=== PATIENT | male | born 2005 | race Caucasian/White ===

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

== ENCOUNTER 2023-06-10 17:55 | Outpatient (CLI) | payer BC, SELFPAY ==
--- NOTE | 2023-06-10 16:15 | DI.RAD_ITS ---
Exam(s) XR CHEST 2V PA LATERAL EXAM: XR CHEST 2V PA LATERAL CLINICAL HISTORY: R05.3 chronic cough with sternal chest discomfort J45.20 MILD ASTHMA TECHNIQUE: 2D digital imaging was performed of the chest. Two images were obtained. PA and lateral views were obtained. COMPARISON: No exams were available for comparison FINDINGS: MEDIASTINUM: Normal. HEART: Normal. PULMONARY VASCULATURE: Normal. LUNGS: Clear. Incidental note is made of an azygos lobe which is a normal variant. PLEURAL SPACE: No pleural effusion or pneumothorax. BONE:Within normal limits for the patient's age. OTHER FINDINGS:Normal. IMPRESSION: No acute pulmonary findings. DATA REPOSITORY: RADIATION DOSE DELIVERED:
--- OUTSIDE RECORDS SUMMARY | 2023-06-10 17:59 | XMS_ITS | Continuity of Care Document ---
Author Name Unknown Organization [facility] Address [address] [place] [address] Care Team Providers Care Medical Underwriter Name Role Phone Roseanne Richard Primary Care Physician Unavail able Encounter [facility] NBR [id number] Date(s): 09/14/22 - 09/14/22 [facility] [address], [place] [address] Discharge Disposition: Home or Self Care Attending Physician: Jean Claude Foster MD Referring Physician: Roseanne Richard Social History Social History Type Response Sex Male Patient Care team information Personnel Name: Roseanne Richard
== END 2023-06-10 18:15 ==
LOC: DI 17:57
PROVIDERS: PCP Student in an Organized Health Care Education/Training Program; Visit Provider Pediatrics
DX: J45.20 Mild intermittent asthma, uncomplicated (principal); R05.3 Chronic cough
CPT/HCPCS: 71046

== ENCOUNTER 2024-11-09 13:52 | Outpatient (CLI) | payer BC, SELFPAY ==
[2024-11-09 13:52] LABS: Abs Immature Grans 0.01 10^3/uL (0.0-0.06); Absolute Basophil Count 0.04 10^3/uL (0.0-0.2); Absolute Eosinophil Count 0.07 10^3/uL (0.0-0.7); Absolute Lymphocyte Count 2.22 10^3/uL (1.2-3.4); Absolute Monocyte Count 0.62 10^3/uL (0.1-0.8); Absolute Neutrophil Count 3.93 10^3/uL (1.2-6.7); Basophils % 0.6 %; HCT 43.9 % (40.0-50.0); HGB 15.3 g/dL (13.5-17.5); Immature Grans % 0.1 %; Lymphocytes % 32.2 %; MCH 30.8 pg (27.0-33.0); MCHC 34.9 % (32.0-36.0); MCV 89 fL (80-95); MPV 8.8 fL (8.0-11.0); Neutrophils % 57.1 %; Platelet Count 247 10^3/uL (130-400); RBC 4.96 10^6/uL (4.36-5.78); RDW 11.4 % (11.8-14.1); RDW-SD 36.7 fL; WBC 6.89 10^3/uL (4.4-10.8)
[2024-11-09 13:55] LABS: ESR 1 mm/hr (0-15)
--- OUTSIDE RECORDS SUMMARY | 2024-11-09 13:55 | XMS_ITS | Encounter Summary ---
[place] [address] Care Team Providers Care Ethylene Compressor Operator Name Role Phone Mallory Arce MD Primary Care Provider [phone] Reason for Visit * Reason Comments Bilateral Foot Pain and a positive blood test. Encounter Details Date Type Department Care Team (Late st Contact Info) Description 10/05/2011 12:30 PM EST Office Visit [facility] [address] [address] Sarita Brito MD Positive MANISH (antinuclear antibody) (Primary Dx); Foot pain Discharge Disposition: Home Social History Tobacco Use Types Packs/Day Years Used Date Smoking Tobacco: Former Sex and Gender Information Value Date Recorded Sex Assigned at Not on file Gender Identity Not on file Sexual Orientation Not on file documented as of this encounter Last Filed Vital Signs Vital Sign Reading Time Taken Comments Blood Pressure 100/60 10/05/2011 12:31 PM EST Pulse - - Temperature 36.9 ??C (98.4 ??F) 10/05/2011 12:[address] Respiratory Rate - - Oxygen Saturation - - Inhaled Oxygen Concentration - - Weight 29 kg (63 lb 14.9 oz) 10/05/2011 12:31 PM EST Height 132.1 cm (4' 4) 10/05/2011 12:31 PM EST Body Mass Index 16.62 10/05/2011 12:31 PM EST Body Mass Index Percentile 69.78% 10/05/2011 12: 31 PM EST Growth Chart: CDC (Boys, 2-2 0 Years) documented in this encounter Progress Notes * Sarita Brito MD - 10/05/2011 1:06 PM EST Subjective: Patient ID: Nguyễn Ramirez is a 5 y.o. male who was referred to [facility] forconsultation by Yuliana Mishra . He comes to clinic today with his mother. Records in [facility] were reviewed. HPI: Nguyễn has been followed by Dr. Mishra since October of 2010 for bilateral foot pain and a limp. He was found to have pes planus and tight heel cords. His joint exam was otherwise WNL. He was given prescriptions for heel cord stretches and shoe inserts. Dr. Mishra saw him on several subsequent occasions. His symptoms improved but persisted. She never observed the limp described by mom. Labs were obtained and he was found to have a positive MANISH at 1:640 and he was referred for further evaluation. History today is of continued intermittent foot pain. It is aggravated by activity and occurs later in the day. When the pain is more severe, he walks on the outside of this foot. With the shoe inserts this happens much less often. However, he still cannot walk more than a mile without developing pain. When he has the pain, he is less active. He is not involved in any sports. There was no preceding injury. Mom denies any AM symptoms or swelling. She denies any other joint pain, particularly low back pain. He is otherwise well without systemic symptoms such as alopecia, photosensitive rash, oral ulcers, SICCA symptoms or Raynaud's. He has been growing and developing normally. . Review of Systems Constitutional: Negative. HENT: Positive for congestion. With seasonal allergies Eyes: Recent complaint of double vision as he awakens in the morning if he doesn't blink. Respiratory: Positive for wheezing. With colds and seasonal allergies and occasionally with exercise. Cardiovascular: Negative. Gastrointestinal: Sensitive stomach, but generally good appetite and normal growth without vomiting or diarrhea. Genitourinary: Negative. Musculoskeletal: See HPI. Skin: Positive for rash. Red scaling below his lip on the left side. Neurological: Negative. Hematological: Negative. Psychiatric/Behavioral: Negative. Past Medical History: He had a lot of wheezing as a smaller child that did not require hospitalization. He had pneumonia at age 3 weeks and then again 2-3 more times at uncertain ages. Family History: There is a maternal cousin with RA and a cousin with +MANISH and uveitis. A maternal grandmother has ?OA. Other positives include cancer, CAD, diabetes and thyroid disease. Social History: He lives with both parents and 2 sisters ages 9 and 10. He is a second grader and a good student. There are no social or peer issues. Objective: Physical Exam Vitals reviewed. Constitutional: He appears well-developed and well-nourished. No distress. HENT: Right Ear: Tympanic membrane normal. Left Ear: Tympanic membrane normal. Mouth/Throat: Mucous membranes are moist. Oropharynx is clear. Eyes: His conjunctivae were moist and clear. There was a Mittendorf dot at 7 o'clock in his left eye. There were no findings of uveitis seen with the ophthalmoscope. Neck: He had FROM without adenopathy, masses or pain at the EOM. Cardiovascular: Normal rate and regular rhythm. No murmur heard. Pulmonary/Chest: Effort normal and breath sounds normal. No respiratory distress. Abdominal: Soft. He exhibits no mass. There is no hepatosplenomegaly. No tenderness. Musculoskeletal: A detailed joint exam was performed. He had FROM in all joints without swelling or pain at the EOM except tight heel cords bilaterally. There was no tenderness or induration of the Achilles tendon. There was no other enthesopathy. He had good subtalar motion. He had good forward flexion of his spine. There was no SI joint tenderness. He had soft pes planus bilaterally that was at least moderate. He had a normal gait today. Laboratory studies were obtained at [facility]. A CBC revealed a WBC of 6710, a Hg of 12.6 and a platelet count of 295,000. Differential of the WBC was essentially WNL with only slightly increased monocytes at 8.9%(2.0-8.0%). His ESR was 9. A repeat MANISH was 1:160 in a diffuse andspeckled pattern. His HUI and DNA were negative. Assessment: 1. Foot pain that is most consistent with a mechanical rather than inflammatory etiology. 2. Positive MANISH without evidence of VLAD or other CTD today. His repeat titer was lower. As many as 25% of children can have a low titer MANISH without significant disease or expectation of future disease. 3. Spot in his left eye, probably a Mittendorf dot. Plan: 1. Labs as noted above. 2. Resume heel cord stretches on a more regular basis. 3. Given his cousin's uveitis associated with a positive MANISH and his eye findings, I recommended aneye exam to R/O uveitis. 4. If he has uveitis, F/U in Rheumatology in 3-4 months. 5. If he has no uveitis and no AM symptoms, RTC in Rheumatology prn. 6. For persistent foot pain in the PM after activity, F/U with Dr. Mishra. Imaging studies may need to be considered. 5. If he develops AM symptoms or swelling, call and we will see him at that time. documented in this encounter Plan of Treatment Not on file documented as of this encounter Visit Diagnoses Diagnosis Positive MANISH (antinuclear antibody)- Primary Other and unspecified nonspecific immunological findings Foot pain Pain in limb documented in this encounter Care Teams Ethylene Compressor Operator Relationship Specialty Start Date End Date Mallory Arce MD [facility] [employer] [place] [address] PCP - General 10/13/10 06/23/15 documented as of this encounter
--- OUTSIDE RECORDS SUMMARY | 2024-11-09 13:55 | XMS_ITS | Encounter Summary ---
[place] [address] Care Team Providers Care Size Changer Name Role Phone Shayne Kraus MD Primary Care Provider [phone] Reason for Referral * Diagnostic Test (Routine) - Closed Specialty Diagnoses / Procedures Referred By Olga t Referred To Contact Radiology Diagnoses Periodic headache syndrome, not intractable Procedures MRI Brain wo Contrast Ehsan Higuera MD [facility] [place] [address] [place] [address] Referral ID Status Reason Start Date Expiration Date V isits Requested Visits Authorized [id number] Closed Specialty Service Requested 04/15/2019 06/13/2019 1 1 Reason for Visit * Reason Comments Other dizziness and headac hes * Consultation (Routine) - Closed Specialty Diagnoses / Procedures Referred By Ogla t Referred To Contact Child Neurology and Development Diagnoses VISUAL DISTURBANCE, [place] Shayne Kraus MD [address] [place] [address] [place] [address] [facility] Pedi Neurology [address] [place] [phone] Referral ID Status Reason Start Date Expiration Date V isits Requested Visits Authorized [id number] Closed Consult, Test & Treat Connection Center 01/25/2019 01/25/2020 1 1 Encounter Details Date Type Department Care Team (Late st Contact Info) Description 04/04/2019 2:30 PM EDT Office Visit [place] [address] Ehsan Higuera MD [facility] [place] [address] Periodic headache syndrome, not intractable Social History Tobacco Use Types Packs/Day Years Used Date Smoking Tobacco: Never Smokeless Tobacco: Never Comments:No smokers in the h ome Sex and Gender Information Value Date Recorded Sex Assigned at Not on file Gender Identity Not on file Sexual Orientation Not on file documented as of this encounter Last Filed Vital Signs Vital Sign Reading Time Taken Comments Blood Pressure 120/61 04/04/2019 2:37 PM EDT Pulse - - Temperature - - Respiratory Rate - - Oxygen Saturation - - Inhaled Oxygen Concentration - - Weight 70.9 kg (156 lb 4.9 oz) 04/04/2019 2:37 P M EDT Height 177.1 cm (5' 9.72) 04/04/2019 2:37 PM ED T Body Mass Index 22.61 04/04/2019 2:37 PM EDT Body Mass Index Percentile 78.52% 04/04/2019 2:3 7 PM EDT Growth Chart: [facility] (Boys, 2-2 0 Years) documented in this encounter Patient Instructions * Patient Instructions* Ehsan Higuera MD - 04/04/2019 2:30 PM EDT 1. MRI brain 2. Good eating, sleep, hydration, and exercise 3. To stop a headache, 3 Ibuprofen as soon as the symptoms begin. 4. Daily preventive, none now. The most I would consider is 400mg Magnesium Oxide nightly documented in this encounter Progress Notes * Ehsan Higuera MD - 04/04/2019 2:30 PM EDT Subjective: Patient ID: Nguyễn Ramirez is a 13 y.o. male. Chief complaint: Headaches and dizziness This is a pediatric neurology outpatient clinic consult. This consult was requested by Shayne rKaus MD for evaluation of dizziness and headaches. 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 He has done well since then. He does well in school and is very active in sports. For the past few months, approximately once per week he will have episodes. They occur when he is going to bed. He feels as though everything around him is moving. He feels the corral in the floor of moving. This then turned into a headache. He has no nausea or vomiting. He he does not have double vision with these episodes, although there have been 2 episodes during the day that were associated with double vision. There is no obvious photophobia, although this occurs when he is going to sleep at night and the lights are off in the room. There is no focal weakness or paresthesias. The headaches are moderate to severe, but he is able to go to sleep. When he awakens the headache is gone. He has not taken any medication for them. The only treatment hasbeen sleep. His first episode occurred while playing basketball. He developed double vision, and hewas wobbling when he walked. He had to leave the game. That was associated with a left-sided headache. All of his headaches have been on the left side of his head. When this occurs at night, if he needs to walk to the bathroom, everything seems to be moving very fast. He had another episode during the day when he was visiting the [facility] in [place], [place]. It was during the day and the building was empty. He became dizzy, and had difficulty with balance. Academically he is doing well in school and is completing the 10th grade. He has had no significant illnesses. He does not drink caffeinated beverages regularly. Review of Systems Constitutional: Negative. HENT: Negative. Eyes: Positive for photophobia and visual disturbance. Double vision twice Respiratory: Negative. Cardiovascular: Negative. Gastrointestinal: Negative for nausea and vomiting. Endocrine: Negative for cold intolerance and heat intolerance. Genitourinary: Negative. Musculoskeletal: Negative. Skin: Negative for rash. Allergic/Immunologic: Positive for environmental allergies. Negative for food allergies. Neurological: Positive for dizziness and headaches. Hematological: Does not bruise/bleed easily. Psychiatric/Behavioral: Negative. Objective: Physical Exam Constitutional: He appears well-developed and well-nourished. HENT: Head: Normocephalic. Mouth/Throat: Oropharynx is clear and moist. No oropharyngeal exudate. Eyes: Pupils are equal, round, and reactive to light. Conjunctivae and EOM are normal. Neck: Normal range of motion. Neck supple. Cardiovascular: Normal rate, regular rhythm and normal heart sounds. No murmur heard. Pulmonary/Chest: Effort normal and breath sounds normal. Abdominal: Soft. Bowel sounds are normal. Musculoskeletal: Normal range of motion. He exhibits no edema or deformity. Neurological: He is alert. He has normal strength. He is not disoriented. He displays no tremor. Nocranial nerve deficit or sensory deficit. He exhibits normal muscle tone. He displays a negative Romberg sign. Coordination and gait normal. Reflex Scores: Bicep reflexes are 2+ on the right side and 2+ on the left side. Brachioradialis reflexes are 2+ on the right side and 2+ on the left side. Patellar reflexes are 2+ on the right side and 2+ on the left side. Achilles reflexes are 2+ on the right side and 2+ on the left side. Normal finger to nose. Normal heel, toe, and tandem walking. Skin: Skin is warm. No rash noted. No pallor. Psychiatric: He has a normal mood and affect. His behavior is normal. Thought content normal. Vitals reviewed. Assessment and Plan: This is a 13-year-old boy with headaches that are consistent with migraine headaches. 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 Basilar migraines are associated with dizziness, double vision, and difficulty with balance. The first step in the management of headaches is to address lifestyle issues. The most important factors is sleep, and sleep deprivation can increase the frequency and severity of headaches. Important to have both adequate sleep and good sleep hygiene. Maintaining a fairly regular schedule can help. If there is difficulty initiating sleep at night, sleep aid suchas melatonin may also help. Meals should not be skipped, and most importantly breakfast should not be skipped. Skipping breakfast and meals may lead to more headaches, and some people will benefit from eating more frequent smaller meals more have been healthy snacks between meals. Maintaining good hydration can also decrease the frequency of headaches. It is important that children with migraine headaches have access to water and maintain good hydration. Regular exercise can also decrease the frequency of headaches. Although caffeine can help a headache, overuse of caffeine can have a reboundeffect and dependence on caffeine can also develop. Because of this, I usually avoid the use of caffeine for headaches. The lifestyle issues will not eliminate the headaches, but they can help make them much less frequent. For intermittent headaches, the first-line treatment is abortive medications. I usually recommend ibuprofen at a dose of 10 mg/kg. Some people respond better to ibuprofen thanTylenol, but there are some people respond better to Tylenol. If one medication does not work, the other should be tried. Naproxen Sodium is also an option with a longer duration of action. These should be used no more than 2 days in any 7 day period. If the first line abortive treatments do not work, then one of the triptans can be tried. These can be used in tablet form or nasal spray. If the triptan alone is not effective, then a triptan plus nonsteroidal anti-inflammatory medications can be used together. When the headaches occur at bedtime, he goes to sleep. When he awakens the headaches are gone. I do not recommend using medication if sleep will abort the headache. If they occur during the day, he should tyrm154 mg ibuprofen. If the child is having one headache per week for having prolonged headaches that lead to many days of missed school, then we start headache prophylaxis. Options include supplement such as riboflavin,magnesium, and coenzyme Q 10. These can be bought individually or as combination products such as MigreLief Prescription options include topiramate, propranolol, amitriptyline, and Depakote. Cyprohept adine is often used in very young children. The goal is to decrease the frequency and severity of the headaches, and when the child is headache free for 2-3 months, we can consider stopping the medication. It is important for the child, family, and primary care provider to know that prophylaxis cantake from 2-12 weeks to have an effect. The child should not stop the medication because they thinkit is not working. If there are side effects, we can try an alternative. But an adequate trial needs to be done. We need to be careful starting too many medications simultaneously. Adding multiple supplements or supplement plus prescription medication may work, but we will not know which component is effective. At a frequency of 1/week, we typically start prophylaxis. The goal of prophylaxis is to decrease the frequency, severity, and duration of headaches, and subsequently decrease the use of abortive medications. This would prevent rebound headaches. However, he is not using abortive medications. Therefore, I do not recommend prophylaxis at this time. The most I would consider is 400 mg magnesium oxide nightly. Because his headaches are always in the same location, I would like to do an MRI of the brain to make sure there is no identifiable structural abnormality that may be causing the headaches. I will see him in follow-up in 3 months. documented in this encounter Plan of Treatment Not on file documented as of this encounter Results * MRI Brain wo Contrast (04/18/2019 5:36 PM EDT) Anatomical Region Laterality Modality Head Magnetic Resonan ce Impressions 04/19/2019 10:04 AM EDT Paranasal sinus inflammatory change otherwise normal brain MRI. I have personally reviewed the image(s) and the residents interpretation and agree with the findings, Socrates Singh at 04/19/2019 10:04 AM Thank you for letting us participate in the care of this patient. For questions regarding this report, please contact the number below. ? Narrative 04/19/2019 10:04 AM EDT EXAMINATION: MRI BRAIN WO CONTRAST CLINICAL HISTORY: New onset headaches, always left hemisphere TECHNIQUE: MRI of the brain performed without intravenous contrast administration. COMPARISON: None FINDINGS: The cerebral parenchyma is normal in signal morphology. Ventricles are normal in size and configuration. No intracranial mass or mass effect. No abnormal diffusion restriction. Midline sagittal structures are normal. Major intracranial vascular flow voids are normal. There is mucosal thickening of the bilateral maxillary sinuses with air-fluid levels and mucosal thickening throughout the ethmoid air cells and right frontal sinus. The mastoid air cells are clear. Intraorbital contents are normal. Procedure Note Socrates Singh MD - 04/19/2019 EXAMINATION: MRI BRAIN WO CONTRAST CLINICAL HISTORY: New onset headaches, always left hemisphere TECHNIQUE: MRI of the brain performed without intravenous contrast administration. COMPARISON: None FINDINGS: The cerebral parenchyma is normal in signal morphology. Ventricles arenormal in size and configuration. No intracranial mass or mass effect. No abnormal diffusion restriction. Midline sagittal structures are normal. Major intracranial vascular flow voids are normal. There is mucosal thickening of the bilateral maxillary sinuses withair-fluid levels and mucosal thickening throughout the ethmoid air cells and rightfrontal sinus. The mastoid air cells are clear. Intraorbital contents arenormal. IMPRESSION Paranasal sinus inflammatory change otherwise normal brain MRI. I have personally reviewed the image(s) and the residents interpretationand agree with the findings, Socrates Singh at 04/19/2019 10:04 AM Thank you for letting us participate in the care of this patient. Forquestions regarding this report, please contact the number below. Ehsan Higuera MD IMG MRI ORDERABLES documented in this encounter Visit Diagnoses Diagnosis Periodic headache syndrome, not intractable Variants of migraine, not elsewhere classified, without mention of intractable migraine without mention of status migrainosus Periodic headache syndrome, not intractable Variants of migraine, not elsewhere classified, without mention of intractable migraine without mention of status migrainosus documented in this encounter Care Teams Size Changer Relationship Specialty Start Date End Date Shayne Kraus MD [address] [place] [address] PCP - General 06/24/15 documented as of this encounter
--- OUTSIDE RECORDS SUMMARY | 2024-11-09 13:55 | XMS_ITS | Clinical Summary ---
Author Organization [facility] Address [facility] [place] [address] Care Team Providers Care Senior Electrical Controls Engineer Name Role Phone Shayne Kraus MD Primary Care Provider [phone] Allergies Active Allergy Reactions Criticality Noted Date Comments Codeine 01/17/2019 Medications Medication Sig Dispensed Refills Start Date End Date Status levalbuterol (XOPENEX) 0.31 mg/3 mL nebulizer solution Take 1 ampule by nebulization as needed. 02/22/2011 Active budesonide (PULMICORT) 0.25 mg/2 mL nebulizer solution Take 0.25 mg by nebulization as needed. 02/22/2011 Active Active Problems Problem Noted Date Diagnosed Date Migraine with aura and witho ut status migrainosus, not intractable 04/04/2019 Leg pain, bilateral 02/02/2011 Overview (08/20/2012): ? subtle heel cord tightness Family History Medical History Relation Comments Migraines Maternal Aunt Hypertension Maternal Grandfather Seizure Disorder Other Hypertension Paternal Grandfather Migraines Sister Relation Status Comments Maternal Aunt Maternal Grandfather Other Alive Paternal Grandfather Sister Social History Tobacco Use Types Packs/Day Years Used Date Smoking Tobacco: Never Smokeless Tobacco: Never Comments:No smokers in the h ome Sex and Gender Information Value Date Recorded Sex Assigned at Not on file Gender Identity Not on file Sexual Orientation Not on file Last Filed Vital Signs Vital Sign Reading Time Taken Comments Blood Pressure 116/72 10/14/2021 9:48 AM EST Pulse 69 10/14/2021 9:48 AM EST Temperature 36.9 ??C (98.4 ??F) 10/05/2011 1 2:31 PM EST Respiratory Rate 18 06/24/2015 3:10 PM EDT Oxygen Saturation - - Inhaled Oxygen Concentration - - Weight 76.5 kg (168 lb 12.2 oz) 10/14/2021 9:48 AM EST Height 179.6 cm (5' 10.71) 10/14/2021 9:[address] Body Mass Index 23.73 10/14/2021 9:48 AM EST Plan of Treatment Health Maintenance Due Date Last Done Comments HPV vaccine (1 - Male 3-dose series) 2018 HIV screen 2021 Hepatitis C Screening 2021 Hepatitis B vaccine (0-59 yrs) (1) 2022 Tetanus/Diphtheria/Pertussis Vaccines (1 - Tdap) 12/16 Covid-19 Vaccine (1 - 2023- season) 2024 Influenza (Flu) vaccine (1 o f 1 - Influenza standard series) 07/22/2024 Care Teams Senior Electrical Controls Engineer Relationship Specialty Start Date End Date Shayne Kraus MD [address] [place], [place] [id number] PCP - General 06/24/15
--- OUTSIDE RECORDS SUMMARY | 2024-11-09 13:55 | XMS_ITS | Encounter Summary ---
Author Organization [facility] [place] [address] Care Team Providers Care Field Representative/Health Education Name Role Phone Shayne Kraus MD Primary Care Provider [phone] Reason for Visit * Consultation (Routine) - Closed Specialty Diagnoses / Procedures Referred By Olga livingston Referred To Contact Pediatric Surgery Diagnoses Pilonidal cyst with abscess Shayne Kraus MD [address] [place] [address] [place] [address] [facility] [address] [place] [phone] Referral ID Status Reason Start Date Expiration Date V isits Requested Visits Authorized [id number] Closed Consult, Test & Treat Connection Center PCP Updated and/or Approved 09/04/2021 09/04/2022 6 6 Encounter Details Date Type Department Care Team (Late st Contact Info) Description 10/14/2021 9:45 AM EST Office [place] [address] [facility] [place] [address] Pilonidal disease Social History Tobacco Use Types Packs/Day Years [...] Pulse 69 10/14/2021 9:48 AM EST Temperature - - Respiratory Rate - - Oxygen Saturation - - Inhaled Oxygen Concentration - - Weight 76.5 kg (168 lb 12.2 oz) 10/14/2021 9:48 AM EST Height 179.6 cm (5' 10.71) 10/14/2021 9:[address] Body Mass Index 23.73 10/14/2021 9:48 AM EST Body Mass Index Percentile 72.70% 10/14/2021 9:4 8 AM EST Growth Chart: [facility] (Boys, 2-2 0 Years) documented in this encounter H&P Notes * Darion Steiner MD - 10/14/2021 9:45 AM EST General Surgery Clinic Note Nguyễn Ramirez 2005 [id number] Chief complaint: pilonidal cyst HPI:Nguyễn is an otherwise healthy 15 year old young man Who we have been asked to see by Shayne Kraus MD For evaluation of pilonidal disease. Nguyễn is accompanied today by his mother. He reports that he first had an episode of sacral pain about 2 years ago at which time he saw a surgeon at [facility], was diagnosed with pilonidal disease which was incised and drained and left to heal bysecondary intent. He had no recurrent episodes untio this July when he had recurrent pain, butno drainage, and was prescribed a course of abx per his pcp. He had a third flare in August of this year, but was self limiting and did not require any additional treatment. He reports that this flare in July happened around the time soccer season started. He denies any fevers, chills, erythema or drainage from the area during episodes, and showers daily. Has never tried hair removal for prophylaxis. Currently he denies any recent pain to the area and otherwise feels well. Past Medical History: Diagnosis Date ??? Asthma ??? Pneumonia 3 weeks ago No past surgical history on file. Social History Socioeconomic History ??? Marital status: Single Spouse name: Not on file ??? Number of children: Not on file ??? Years of education: Not on file ??? Highest education level: Not on file Occupational History ??? Not on file Tobacco Use ??? Smoking status: Never Smoker ??? Smokeless tobacco: Never Used ??? Tobacco comment: No smokers in the home Vaping Use ??? Vaping Use: Never used Substance and Sexual Activity ??? Alcohol use: Not on file ??? Drug use: Not on file ??? Sexual activity: Not on file Other Topics Concern ??? Not on file Social History Narrative ??? Not on file Social Determinants of Health Financial Resource Strain: Not on file Food Insecurity: Not on file Transportation Needs: Not on file Physical Activity: Not on file Housing Stability: Not on file ROS: Negative for Headaches, h/o migraines Recent change in vision Difficulties swallowing Chest pain/thigthness Palpations SOB Nausea/emesis, diarrhea/constipation Difficulties urinating, h/o kidney stones, UTI's Swelling of legs New skin rash/lesion Depression/anxiety DM/thyroid issues All other systems negative Current Outpatient Medications on File Prior to Visit Medication Sig Dispense Refill ??? levalbuterol (XOPENEX) 0.31 mg/3 mL nebulizer solution Take 1 ampule by nebulization as needed. ??? budesonide (PULMICORT) 0.25 mg/2 mL nebulizer solution Take 0.25 mg by nebulization as needed. No current facility-administered medications on file prior to visit. Allergies Allergen Reactions ??? Codeine Vitals: 10/14/21 0948 BP: 116/72 BP Location (NB): Right arm Patient Position: Sitting BP Cuff Sizes: Adult (25-34 cm) Pulse: 69 Weight: 76.5 kg (168 lb 12.2 oz) Height: 179.6 cm (5' 10.71) Exam: General: Alert and oriented x4 Heart: RRR Lungs: Vesicular bilateral Abdomen: Soft, non distended/tender, + BS Extremities: Warm, no edema : normal male genitalia, sacral cleft hair clipped to reveal small pit, probed with mosquito clamp, unable to remove any hair or foreign material. Skin appearing healthy without any erythema induration or drainage appreciated Assessment/Plan Nguyễn is a 15-year-old young man here for evaluation of pilonidal disease. Currently, the patient has no active inflammation or infection. He does have 1 small pit but there is no drainage from it, no hair in the pit and no surrounding inflammation. We discussed the natural pathophysiology of pilonidal disease, and described to both ann and Nguyễnhow this can be similar to an ingrown hair which can act as a foreign body which the body reacts towith inflammation or infection. We discussed treatment options including conservative management with hair removal and good hygeinegiven that he is asymptomatic. We discussed that should he have recurrence or ongoing symptoms, we described the minimally invasive approach using punch biopsies for excision of the pits and their tracts with attempted hair removal in any cavities found and then leaving the wounds open for healing by secondary intention. This could be done either under local anesthetic or under sedation. At this time as he as well, he and his mother elect to defer any surgical intervention, and will continue with conservative management. Should he have recurrence of his symptoms, Nguyễn was instructed to call us. Darion Steiner MD ATTENDING PHYSICIAN ADDENDUM I was the attending physician supervising the resident in the above care. I have seen and examined the patient and have revised the documentation as necessary and I agree with this assessment and plan outlined by Dr. Steiner. Yoly Navarro MD, MPH stopper maker helper [facility] [phone] fax documented in this encounter Plan of Treatment Not on file documented as of this encounter Visit Diagnoses Diagnosis Pilonidal disease Other specified disorder of skin documented in this encounter Care Teams Field Representative/Health Education Relationship Specialty Start Date End Date Shayne Kraus MD [address] [place] [address] PCP - General 06/24/15 documented as of this encounter
--- OUTSIDE RECORDS SUMMARY | 2024-11-09 13:55 | XMS_ITS | Encounter Summary ---
Author Organization [facility] Address [facility] [place] [address] Care Team Providers Care Supervisor Ovens Name Role Phone Shayne Kraus MD Primary Care Provider [phone] Reason for Visit * Reason Comments Visual Disturbance Encounter Details Date Type Department Care Team (Late st Contact Info) Description 06/24/2015 2:45 PM EDT Office Visit [place] [address] Ehsan Higuera MD [facility] [address] [place] [address] Visual disturbance Discharge Disposition: Home Social History Tobacco Use Types Packs/Day Years Used Date Smoking Tobacco: Former Sex and Gender Information Value Date Recorded Sex Assigned at Not on file Gender Identity Not on file Sexual Orientation Not on file documented as of this encounter Last Filed Vital Signs Vital Sign Reading Time Taken Comments Blood Pressure 104/51 06/24/2015 3:10 PM EDT Pulse 71 06/24/2015 3:10 PM EDT Temperature - - Respiratory Rate 18 06/24/2015 3:10 PM EDT Oxygen Saturation - - Inhaled Oxygen Concentration - - Weight 43.6 kg (96 lb 3.2 oz) 06/24/2015 3:10 PM EDT Height 154 cm (5' 0.63) 06/24/2015 3:10 PM EDT Head Circumference 58 cm 06/24/2015 3:10 PM EDT Body Mass Index 18.4 06/24/2015 3:10 PM EDT Body Mass Index Percentile 64.39% 06/24/2015 3:1 0 PM EDT Growth Chart: [facility] (Boys, 2-2 0 Years) documented in this encounter Patient Instructions * Patient Instructions* Ehsan Higuera MD - 06/24/2015 3:49 PM EDT Triggered by illness, now occurring mostly (but not always) during light sleep (stage 1 and 2). Most likely sleep related phenomena. I will not do any additional testing. It will get better with timeand good sleep hygiene. Normal diet and activity Follow-up as needed documented in this encounter Progress Notes * Ehsan Higuera MD - 06/24/2015 3:30 PM EDT Subjective: Patient ID: Nguyễn Ramirez is a 9 y.o. male. HPI Comments: This is a pediatric neurology outpatient clinic consult. This consult was requested by Ncik Levine M.D. for evaluation for [place] syndrome. Nguyễn is an 9-year-old boy who had a pneumonia and febrile illness 3 weeks ago. His symptoms were fever, cough, and headache. When he was sick, he developed visual misperceptions. Sometimes his room seemed big. It felt leg and at times it looked big. Sometimes objects such as a doorknob seem to change size. There would go from small to Laurita and back to small. He would think things are moving fast. His mother gave an example of him slowly moving his hand, and him telling her look how fast it is going. Although his illnesses ended, these symptoms have persisted. They seem to occur more commonly at night, and occur after thelike to go out and he is initiating sleep. When they occur, he will want to drink cold water or take a shower. The symptoms resolve with these maneuvers. They have occurred during the day as well. Itoccurred one time in the car. He plays soccer, and did soccer camp last week. It did not occur while playing soccer, although it did occur a few times afterwards. He has become distressed by them. Heseems to be breathing fast, but he denies any perioral paresthesias or paresthesias of the hands and feet. He said that sometimes it feels like his heart is beating hard or fast. He seems distressed when they occur and wide-eyed, but he is communicative and purposeful and he'll want the water or the shower. He tends to be an easy-going kid and not one who is particularly anxious. history: He was born at 37 weeks gestation. There were no complications with the ordelivery and his weight was 7 pounds and 1 ounce. Developmental history: Developmental milestones were met at the appropriate times, and he is a goodstudent entering the sixth grade. Review of Systems Constitutional: Negative. Decreased appetite, fever, and cough with pneumonia. Also lost 4 lbs, but gained it back Eyes: Positive for visual disturbance. Respiratory: Positive for shortness of breath. Cardiovascular: Positive for palpitations. Gastrointestinal: Negative. Endocrine: Negative. Genitourinary: Negative. Musculoskeletal: Negative. Skin: Negative. Negative for pallor. Allergic/Immunologic: Positive for environmental allergies. Negative for food allergies. Neurological: Positive for headaches. Negative for dizziness and light-headedness. Psychiatric/Behavioral: Negative. Objective: Physical Exam Constitutional: He appears well-nourished. He is active. No distress. HENT: Nose: No nasal discharge. Mouth/Throat: Mucous membranes are moist. No tonsillar exudate. Oropharynx is clear. Pharynx is normal. Eyes: Conjunctivae and EOM are normal. Pupils are equal, round, and reactive to light. Right eye exhibits no discharge. Left eye exhibits no discharge. Cardiovascular: Normal rate, S1 normal and S2 normal. No murmur heard. Pulmonary/Chest: Effort normal and breath sounds normal. No respiratory distress. He has no wheezes. Abdominal: Soft. Bowel sounds are normal. He exhibits no distension. There is no tenderness. Neurological: He is alert and oriented for age. He has normal strength and normal reflexes. He displays no tremor. No cranial nerve deficit or sensory deficit. He exhibits normal muscle tone. He displays a negative Romberg sign. Coordination and gait normal. He displays no Babinski's sign on the right side. He displays no Babinski's sign on the left side. Reflex Scores: Tricep reflexes are 2+ on the right side and 2+ on the left side. Bicep reflexes are 2+ on the right side and 2+ on the left side. Brachioradialis reflexes are 2+ on the right side and 2+ on the left side. Patellar reflexes are 2+ on the right side and 2+ on the left side. Achilles reflexes are 2+ on the right side and 2+ on the left side. Normal finger to nose and heel to wallace. Normal heel, toe, and tandem walking Assessment and Plan: This is an 11-1/2 year-old boy with visual misperceptions that were most likely triggered by his illness. They have persisted, but they're mostly occurring as he is entering sleep. During the light stages of sleep, as somewhat is entering stage I sleep, visual perception may change. I suspect that these are more likely sleep-related phenomena. Some have occurred during the day, but those are now infrequent. Most of them are occurring at night and associated with either entering Cipro coming outof sleep. There is no additional testing to be done. He has a normal neurologic exam and is healthy. There is no treatment for these. With good sleep hygiene and time, they should resolve. Follow-up will be on an as-needed basis. documented in this encounter Plan of Treatment Not on file documented as of this encounter Visit Diagnoses Diagnosis Visual disturbance Unspecified visual disturbance documented in this encounter Care Teams Supervisor Ovens Relationship Specialty Start Date End Date Shayne Kraus MD [address] [place] [address] PCP - General 06/24/15 documented as of this encounter
--- OUTSIDE RECORDS SUMMARY | 2024-11-09 13:55 | XMS_ITS | Encounter Summary ---
[place] [address] Care Team Providers Care Organizational Development Director Name Role Phone Shayne Kraus MD Primary Care Provider [phone] Encounter Details Date Type Department Care Team (Late st Contact Info) Description 04/04/2019 Orders Only [place] [address] Yony Hernandez Social History Tobacco Use Types Packs/Day Years Used Date Smoking Tobacco: Never Smokeless Tobacco: Never Comments:No smokers in the h ome Sex and Gender Information Value Date Recorded Sex Assigned at Not on file Gender Identity Not on file Sexual Orientation Not on file documented as of this encounter Plan of Treatment Not on file documented as of this encounter Visit Diagnoses Not on filedocumented in this encounter Care Teams Organizational Development Director Relationship Specialty Start Date End Date Shayne Kraus MD [place], [place] [id number] PCP - General 06/24/15 documented as of this encounter
--- OUTSIDE RECORDS SUMMARY | 2024-11-09 13:55 | XMS_ITS | Encounter Summary ---
Author Organization [facility] Address [address] [place] [address] Care Team Providers Care Finger Cobbler Name Role Phone Shayne Kraus MD Primary Care Provider [phone] Reason for Visit * Reason Comments Ankle Pain playing basketball, came down on another players foot. Laterally rolled ankle. Pain to L lateral malleolus with swelling. DP/PT pulses palpable. Encounter Details Date Type Department Care Team (Late st Contact Info) Description 01/17/2019 19:19 EST - 01/17/2019 20:18 EST Emergency [facility] Emergency Department - Main [address] [address] Anila Fox, PA-C [address] [place] [address], [address] [place] [id number] Emergency, MD Victorino Closed Salter-Watt type I fracture of distal end of left fibula (Primary Dx) Discharge Disposition: Home or Self Care Social History Tobacco Use Types Packs/Day Years Used Date Smoking Tobacco: Never Smokeless Tobacco: Never Alcohol Use Standard Drinks/Week Comments No 0 (1 standard drink = 0.6 oz pur e alcohol) AUDIT-C Answer Date Recorded Frequency of Alcohol Consumption Never 01/17/2019 Average Number of Drinks Not on file 019 Frequency of Binge Drinking Not on file 12/23 Sex and Gender Information Value Date Recorded Sex Assigned at Not on file Legal Sex Male 19:19 EST Gender Identity Not on file Sexual Orientation Not on file documented as of this encounter Last Filed Vital Signs Vital Sign Reading Time Taken Comments Blood Pressure 123/62 01/17/20191927 EST Pulse 55 01/17/20191927 EST Temperature 36.5 ??C (97.7 ??F) 01/17/20191927 EST Respiratory Rate 16 01/17/20191927 EST Oxygen Saturation 100% 01/17/20191927 EST Inhaled Oxygen Concentration - - Weight 66.7 kg (147 lb) 01/17/20191927 EST Height - - Body Mass Index - - documented in this encounter Discharge Diagnoses Diagnosis S89.312A Salter-Watt Type I physeal fracture of lower end of left fibula, initial encounter for closed fracture-S89.312A[ICD-10-CM] X50.1XXA Overexertion from prolonged static or awkward postures, init-X50.1XXA[ICD-10-CM] Y93.67 Activity, basketball-Y93.67[ICD-10-CM] M25.572 Pain in left ankle-M25.572[ICD-10-CM] M25.472 Effusion, left ankle-M25.472[ICD-10-CM] Z88.5 Allergy status to narcotic agent status-Z88.5[ICD-10-CM] documented in this encounter Discharge Instructions * Discharge Instructions* Anila Fox PA - 01/17/2019 20:07 EST The xray did not show a fracture but you are tender right over the growth plate and this suggests ahidden fracture. Take Ibuprofen (400 mg every 6 hours - take with food) or Tylenol (500-1000 mg every 6 hours)as needed for pain. Rest, Ice, and Elevate your ankle to reduce pain and swelling. Wear the walking boot for support. Use the crutches you already have as needed for weight-bearing. If tolerable, ok to put weight on the walking boot. Follow up with orthopedics in your local area. * Attachments The following attachments cannot be sent through Care Everywhere. * FRACTURE: SALTER-WATT: PEDIATRIC (SAMI) documented in this encounter Discharge Disposition Disposition Code Departure Means Destination Home or Self Care documented in this encounter ED Notes * Anila Fox PA - 01/17/2019 2013 EST DOS: 01/17/2019 Chief Complaint Patient presents with ??? Ankle Pain playing basketball, came down on another players foot. Laterally rolled ankle. Pain to L lateral malleolus with swelling. DP/PT pulses palpable. HPI The patient is a 13 y.o. male who presents today with Ankle Pain (playing basketball, came down on another players foot. Laterally rolled ankle. Pain to L lateral malleolus with swelling. DP/PT pulses palpable. ) 13 yo otherwise healthy male presents for evaluation of left ankle pain. Had eversion injury as he landed when coming down after shooting a basket during a basketball game. Unable to bear weight following. Had ibuprofen on arrival, reports pain is still significant. No other injuries. No numbness. Review of Systems Review of Systems Constitutional: Negative for fever. HENT: Negative for congestion and rhinorrhea. Eyes: Negative for pain. Respiratory: Negative for cough. Cardiovascular: Negative for chest pain. Gastrointestinal: Negative for abdominal pain. Genitourinary: Negative for flank pain. Musculoskeletal: Positive for arthralgias and joint swelling. Negative for back pain. Skin: Negative for wound. Allergic/Immunologic: Negative for immunocompromised state. Neurological: Negative for headaches. Psychiatric/Behavioral: Negative for confusion. Allergies Allergen Reactions ??? Codeine Vital Signs Temp: 36.5 ??C (97.7 ??F) Temp src: Oral Pulse: 55 Resp: 16 SpO2: 100 % BP: 123/62 BP Device: BP Machine Patient Position: Sitting BP Cuff Location: Right arm O2 Device: None (Room air) Physical Exam Constitutional: He appears well-developed and well-nourished. No distress. HENT: Head: Normocephalic and atraumatic. Right Ear: External ear normal. Left Ear: External ear normal. Eyes: Conjunctivae are normal. Neck: Normal range of motion. Neck supple. Cardiovascular: Normal rate. Pulmonary/Chest: Effort normal. Musculoskeletal: Normal range of motion. Left ankle: He exhibits swelling. He exhibits no deformity, no laceration and normal pulse. Tenderness. Lateral malleolus and AITFL tenderness found. No medial malleolus, no head of 5th metatarsal and no proximal fibula tenderness found. Achilles tendon normal. Neurological: He is alert. Skin: He is not diaphoretic. No pallor. Psychiatric: He has a normal mood and affect. Nursing note and vitals reviewed. RESULTS EKG orders: None Radiology orders: ANKLE 3 OR MORE VIEWS Imaging Reviewed. I have independently reviewed the images. There are no significant abnormalities Procedures ED COURSE A medical screening exam was performed. Xray negative but exam concerning for non displaced salter 1. Has crutches, given walking boot. They will follow up with orthopedics locally in their home town. Images put on disk. Final diagnoses: Closed Salter-Watt type I fracture of distal end of left fibula DISPOSITION: Discharged The patient's pain was managed to an adequate level weighing risk vs. benefit of further medications. Upon departure from the Emergency Department, the patient's pain was 7 on a zero to ten scale. Any further pain treatment will be at the discretion of the provider following up with the patient based on their clinical assessment. Condition at departure from the Emergency Department: Stable PCP: Doctor Unknown MDM Number of Diagnoses or Management Options Closed Salter-Watt type I fracture of distal end of left fibula: Diagnosis management comments: 3 Amount and/or Complexity of Data Reviewed Tests in the radiology section of CPT??: ordered and reviewed Discussion of test results with the performing providers: yes Independent visualization of images, tracings, or specimens: yes Jerome Whiting was available for supervision. 01/17/2019 20:15 No flowsheet data found. documented in this encounter Plan of Treatment Not on file documented as of this encounter Procedures Procedure Name Priority Date/Time Associated Diagnosis Comments ANKLE 3 OR MORE VIEWS STAT 01/17/2019 19:42 EST documented in this encounter Results * ANKLE 3 OR MORE VIEWS (01/17/2019 19:42 EST) Anatomical Region Laterality Modality Other 01/17/2019 19:4 2 EST 01/17/2019 19:47 EST Narrative 01/17/2019 19:47 EST ANKLE 3 OR MORE VIEWS ??01/17/2019 7:42 PM Clinical History/Comments: Inversion injury COMPARISON: None TECHNIQUE: 3 views left ankle. FINDINGS: Osseous structures and alignment normal in this skeletally immature patient. Soft tissue swelling at lateral malleolus noted. Procedure Note Socrates Camilo MD - 01/17/2019 ANKLE 3 OR MORE VIEWS 01/17/2019 7:42 PM Clinical History/Comments: Inversion injury COMPARISON: None TECHNIQUE: 3 views left ankle. FINDINGS: Osseous structures and alignment normal in this skeletally immature patient. Soft tissue swelling at lateral malleolus noted. Parviz Arreaga MD IMG DIAGNOSTIC IMAGING ORDERA BLES Final Result documented in this encounter Visit Diagnoses Diagnosis Closed Salter-Watt type I fracture of distal end of left fibula- Primary documented in this encounter Administered Medications Inactive Administered Medications - up to 3 most recent administrations Medication Order MAR Action Action Date Dose Rate Site acetaminophen (TYLENOL) tablet 650 mg 650 mg, oral, NOW X1, 1 dose, On Tue01/17/19 at 2014, STAT Given 01/17/2019 20:11 EST 650 mg ibuprofen (MOTRIN) 400 mg tablet 1 dose, Starting on Tue01/17/19 at 1932, Until Tue01/17/19 at 2218 ibuprofen (MOTRIN) tablet 400 mg 400 mg, oral, NOW X1, 1 dose, On Tue01/17/19 at 1945, STAT Given 01/17/2019 19:33 EST 400 mg documented in this encounter Active and Recently Administered Medications Times are shown in EST. Scheduled Medication Order 01/15/2019 01/16/2019 01/17/2019 acetaminophen (TYLENOL) tablet 650 mg (COMPLETED) 650 mg, oral, NOW X1, 1 dose, On Tue01/17/19 at 2014, STAT 2010 (Given - Provid er: Gregory Shane RN) ibuprofen (MOTRIN) tablet 400 mg (COMPLETED) 400 mg, oral, NOW X1, 1 dose, On Tue01/17/19 at 1945, STAT 1933 (Given - Provid er: Yordan Edgar RN - Comment: given in triage, FERNANDO Arreaga) No Frequency Medication Order 01/15/2019 01/16/2019 01/17/2019 ibuprofen (MOTRIN) 400 mg tablet 1 dose, Starting on Tue01/17/19 at 1932, Until Tue01/17/19 at 2218 documented in this encounter Orders Medications Ordered That Kurt ht Not Have Been Administered Count Last Ordered Date First Ordered Date ibuprofen (MOTRIN) 400 mg tablet 1 01/17/20 19 General Supply Count Last Ordered Date First Or dered Date 3D BOOT 1 01/17/2019 documented in this encounter Care Teams Finger Cobbler Relationship Specialty Start Date End Date Shayne Kraus MD [address] [place] [address] PCP - General 01/17/19 documented as of this encounter
--- OUTSIDE RECORDS SUMMARY | 2024-11-09 13:55 | XMS_ITS | Encounter Summary ---
Author Organization [facility] Address [facility] [place] [address] Care Team Providers Care Rag Inspector Name Role Phone Shayne Kraus MD Primary Care Provider [phone] Reason for Visit * Reason Comments Other Headache Encounter Details Date Type Department Care Team (Late st Contact Info) Description 08/02/2019 1:00 PM EDT Office Visit [place] [address] Ehsan Higuera MD [facility] [place] [address] Periodic headache syndrome, not intractable Social History [...] Sign Reading Time Taken Comments Blood Pressure 112/63 08/02/2019 1:05 PM EDT Pulse 51 08/02/2019 1:05 PM EDT Temperature - - Respiratory Rate - - Oxygen Saturation - - Inhaled Oxygen Concentration - - Weight 70.1 kg (154 lb 8 oz) 08/02/2019 1:05 PM EDT Height 177.8 cm (5' 10) 08/02/2019 1:05 PM EDT Body Mass Index 22.17 08/02/2019 1:05 PM EDT Body Mass Index Percentile 72.83% 08/02/2019 1:0 5 PM EDT Growth Chart: CDC (Boys, 2-2 0 Years) documented in this encounter Patient Instructions * Patient Instructions* Ehsan Higuera MD - 08/02/2019 1:00 PM EDT 1. Good eating, sleep, hydration, and exercise 2. 3 Ibuprofen at the start of symptoms. Call if this is not effective 4. No daily medications Follow-up as needed documented in this encounter Progress Notes * Ehsan Higuera MD - 08/02/2019 1:00 PM EDT Subjective: Patient ID: Nguyễn Ramirez is a 13 y.o. male. Chief complaint: Migraine headaches This is a pediatric neurology outpatient clinic follow-up visit. For details of his presentation tomchristiano, please see my note from April 04, 2019. Nguyễn is a 13-year-old boy who I saw because of headaches. He reports 2 headaches in May on consecutive days. With the first 1 he describes his legs as being weak and tingly. He seemed spacey in conversation. He took Advil and slept for 4 hours and the headache was gone. The following day he did not awaken with one. However, around 10:00 in the morning he felt a little weak and had a headache. He had 2 more headache in June. 3 times during the monthof June he had episodes playing soccer when she had difficulty tracking the ball against the background of the tracy. When the ball was in the year, he had difficulty tracking it. He maintains good hydration. His sleep has been adequate. Advil seems to be effective for his headaches. The headaches have been infrequent. He is currently playing soccer without difficulty. Review of Systems Constitutional: Negative. HENT: Positive for congestion. Eyes: Negative for visual disturbance. Respiratory: Negative. Gastrointestinal: Negative. Negative for nausea and vomiting. Endocrine: Negative. Musculoskeletal: Negative. Skin: Negative. Neurological: Positive for headaches. Psychiatric/Behavioral: Negative. Objective: Physical Exam Constitutional: He [...] Normal range of motion. He exhibits no edema. Neurological: He is alert. He has normal strength. He displays no tremor. No cranial nerve deficit or sensory deficit. He exhibits normal muscle tone. Coordination and gait normal. Reflex Scores: Bicep reflexes are 2+ on the right side and 2+ on the left side. Brachioradialis reflexes are 2+ on the right side and 2+ on the left side. Patellar reflexes are 2+ on the right side and 2+ on the left side. Achilles reflexes are 2+ on the right side and 2+ on the left side. Normal [id number]. Normal tandem walking. Vitals reviewed. Assessment and Plan: This is a 13-year-old boy with migraine headaches. His headaches are infrequent. They respond to treatment with ibuprofen. He does not require prophylaxis. I do not know what to make of his inabilityto retract the soccer ball. There were no other symptoms. It does not point to a specific abnormality. Natural history of headaches that they wax and wane over time. They may be. In which they are frequent, and others in which they are infrequent. For now, follow-up will be as needed. If headaches become more frequent and he is either missing school or is interfering with school and activities, I can see him again to evaluate the need for prophylaxis. documented in this encounter Plan of Treatment Not on file documented as of this encounter Visit Diagnoses Diagnosis Periodic headache syndrome, not intractable Variants of migraine, not elsewhere classified, without mention of intractable migraine without mention of status migrainosus documented in this encounter Care Teams Rag Inspector Relationship Specialty Start Date End Date Shayne Kraus MD [address] [place] [address] PCP - General 06/24/15 documented as of this encounter
--- OUTSIDE RECORDS SUMMARY | 2024-11-09 13:55 | XMS_ITS | Encounter Summary ---
Author Organization [facility] [place] [address] Care Team Providers Care Supervisor Color Paste Mixing Name Role Phone Shayne Kraus MD Primary Care Provider [phone] Reason for Referral * Diagnostic Test (Routine) - Closed Specialty Diagnoses / Procedures Referred By Olga livingston Referred To Contact Radiology Diagnoses Periodic headache syndrome, not intractable Procedures MRI Brain wo Contrast Ehsan Higuera MD [facility] [address] [place] [address] [place] [address] Referral ID Status Reason Start Date Expiration Date V isits Requested Visits Authorized [id number] Closed Specialty Service Requested 04/15/2019 06/13/2019 1 1 Reason for Visit * Diagnostic Test (Routine) - Closed Specialty Diagnoses / Procedures Referred By Olga livingston Referred To Contact Radiology Diagnoses Periodic headache syndrome, not intractable Procedures MRI Brain wo Contrast Ehsan Higuera MD [facility] [place] [address] [place] [address] Referral ID Status Reason Start Date Expiration Date V isits Requested Visits Authorized [id number] Closed Specialty Service Requested 04/15/2019 06/13/2019 1 1 Encounter Details Date Type Department Care Team (Latest Contact Info) Description 04/18/2019 4:45 PM EDT - 04/18/2019 11:59 PM EDT Hospital [place] [address] Ehsan Higuera MD [facility] [address] [place] [address] Periodic headache syndrome, not intractable Discharge Disposition: Home Social History Tobacco Use Types Packs/Day Years Used Date Smoking Tobacco: Never Smokeless Tobacco: Never Comments:No smokers in the h ome Sex and Gender Information Value Date Recorded Sex Assigned at Not on file Gender Identity Not on file Sexual Orientation Not on file documented as of this encounter Medications at Time of Discharge Medication Sig Dispensed Refills Start Date End Date levalbuterol (XOPENEX) 0.31 mg/3 mL nebulizer solution Take 1 ampule by nebulization as needed. 02/22/2011 budesonide (PULMICORT) 0.25 mg/2 mL nebulizer solution Take 0.25 mg by nebulization as needed. 02/22/2011 documented as of this encounter Plan of Treatment Not on file documented as of this encounter Procedures Procedure Name Priority Date/Time Associated Diagnosis Comments MRI BRAIN WO CONTRAST Routine 04/18/2019 5:36 PM EDT Periodic headache syndrome, not intractable documented in this encounter Results * MRI Brain wo [...] contact the number below. Ehsan Higuera MD IM MRI ORDERABLES documented in this encounter Visit Diagnoses Diagnosis Periodic headache syndrome, not intractable Variants of migraine, not elsewhere classified, without mention of intractable migraine without mention of status migrainosus documented in this encounter Care Teams Supervisor Color Paste Mixing Relationship Specialty Start Date End Date Shayne Kraus MD [address] [facility] [place] [address] PCP - General 06/24/15 documented as of this encounter
--- OUTSIDE RECORDS SUMMARY | 2024-11-09 13:55 | XMS_ITS | Clinical Summary ---
Author Organization [facility] Address [address] [place] [address] Care Team Providers Care Motor Vehicle Salesperson Name Role Phone Shayne Kraus MD Primary Care Provider [phone] Allergies Active Allergy Reactions Criticality Noted Date Comments Codeine 01/17/2019 Medications No known medications Social History Tobacco Use Types Packs/Day Years Used Date Smoking Tobacco: Never Smokeless Tobacco: Never Alcohol Use Standard Drinks/Week Comments No 0 (1 standard drink = 0.6 oz pur e alcohol) AUDIT-C Answer Date Recorded Frequency of Alcohol Consumption Never 01/17/2019 Average Number of Drinks Not on file 019 Frequency of Binge Drinking Not on file 12/23 Interpersonal Safety Answer Date Record ed Physically Hurt Never 06/23/2020 Verbally Threaten Not on file 06/23/2020 Sex and Gender Information Value Date Recorded Sex Assigned at Not on file Legal Sex Male 19:19 EST Gender Identity Not on file Sexual Orientation Not on file Obstetrics History Last Filed Vital Signs Vital Sign Reading Time Taken Comments Blood Pressure 123/62 01/17/20191927 EST Pulse 55 01/17/20191927 EST Temperature 36.5 ??C (97.7 ??F) 01/17/20191927 EST Respiratory Rate 16 01/17/20191927 EST Oxygen Saturation 100% 01/17/20191927 EST Inhaled Oxygen Concentration - - Weight 66.7 kg (147 lb) 01/17/20191927 EST Height - - Body Mass Index - - Plan of Treatment Health Maintenance Due Date Last Done Comments Hepatitis C Screen 2003 Hepatitis B Vaccine (1 of 3 - 19+ 3-dose series) 12/16 COVID-19 Vaccine (2023- season) 2024 Care Teams Motor Vehicle Salesperson Relationship Specialty Start Date End Date Shayne Kraus MD [address] [place] [address] [place] [address] PCP - General 01/17/19
--- OUTSIDE RECORDS SUMMARY | 2024-11-09 13:55 | XMS_ITS | Encounter Summary ---
Author Organization [facility] Address [address] [place] [address] Care Team Providers Care Senior Loss Control Specialist Name Role Phone Shayne Kraus MD Primary Care Provider [phone] Encounter Details Date Type Department Care Team (Late st Contact Info) Description 07/15/2021 Lab Requisition [facility] Pathology & Laboratory Medicine - [facility] [place] [address] [place], [place] [address] Outr Resulting Lab, Provider Social History Tobacco Use Types Packs/Day Years [...] Procedure Name Priority Date/Time Associated Diagnosis Comments FUNGAL CULTURE/SMEAR, SKIN, HAIR OR NAIL Routine 07/14/2021 16:40 EDT documented in this encounter Results * FUNGAL CULTURE/SMEAR, SKIN, HAIR OR NAIL (07/14/2021 16:40 EDT) Organism ID No fungi isolated 08/12/2021 8:28 EDT [facility] Fungal Smear No Fungi Seen 08/12/2021 8:28 EDT [facility] Skin TISSUE SPECIMEN FROM SKIN / Unknown 07/14/2021 16:40 EDT 07/15/2021 17:15 EDT us Provider Outr Resulting Lab MICROBIOLOGY - GENER AL ORDERABLES Final Result Performing Organization Address City/State/[facility] Co de Phone Number [facility] [address] [place] [address] documented in this encounter Visit Diagnoses Not on filedocumented in this encounter Care Teams Senior Loss Control Specialist Relationship Specialty Start Date End Date Shayne Kraus MD [address] [place] [address] [place] [address] PCP - General 01/17/19 documented as of this encounter
--- OUTSIDE RECORDS SUMMARY | 2024-11-09 13:55 | XMS_ITS | Encounter Summary ---
[place] [address] Care Team Providers Care Customer Advocacy Manager Name Role Phone Mallory Arce MD Primary Care Provider [phone] Reason for Visit * Reason Onset Date Comments Results 11/23/2011 Encounter Details Date Type Department Care Team (Late st Contact Info) Description 11/23/2011 Telephone [place] [id number] Sarita Brito MD Results Social History Tobacco Use Types Packs/Day Years Used Date Smoking Tobacco: Former Sex and Gender Information Value Date Recorded Sex Assigned at Not on file Gender Identity Not on file Sexual Orientation Not on file documented as of this encounter Miscellaneous Notes * Telephone Encounter - Rosa Ortiz, RN - 11/23/2011 2:33 PM EST Called [facility] lab and asked that they send us the pending labs, MANISH, DNAand HUI from 11/05/11. * Telephone Encounter - Rosa Ortiz RN - 11/23/2011 2:02 PM EST This nurse received call from Rheum security ambassador Ephraim Talley. She took call from mom who is asking for callback and lab results. Per mom they have an appt tomorrow with Dr Afia Mishra and mom is not sure if they need to keep this appt as it was to be based on lab results. She is asking for a callback. Attempted to call mom on both home and cell (?) phones but no answer at either one. Last labs notedin MR are from 07/01. Nothing in the scanned documents area. Did he get labs elsewhere that we did not receive yet? documented in this encounter Plan of Treatment Not on file documented as of this encounter Visit Diagnoses Not on filedocumented in this encounter Care Teams Customer Advocacy Manager Relationship Specialty Start Date End Date Mallory Arce MD [facility] [place] [address] PCP - General 10/13/10 06/23/15 documented as of this encounter
--- OUTSIDE RECORDS SUMMARY | 2024-11-09 13:55 | XMS_ITS | Encounter Summary ---
Author Organization [facility] Address [address] [place] [address] Care Team Providers Care Rehab Consultant Name Role Phone Shayne Kraus MD Primary Care Provider [phone] Encounter Details Date Type Department Care Team (Latest Contact Info) Description 01/17/2019 Travel Social History Tobacco Use Types Packs/Day Years [...] on filedocumented in this encounter Care Teams Rehab Consultant Relationship Specialty Start Date End Date Shayne Kraus MD [address] [place] [address] [place] [address] PCP - General 01/17/19 documented as of this encounter
--- OUTSIDE RECORDS SUMMARY | 2024-11-09 13:55 | XMS_ITS | Encounter Summary ---
[place] [address] Care Team Providers Care Manager Commission Name Role Phone Mallory Arce MD Primary Care Provider [phone] Reason for Visit * Reason Comments Bilateral Foot Pain Encounter Details Date Type Department Care Team (Late st Contact Info) Description 06/24/2011 8:20 AM EDT [place] [id number] Juliana Mishra MD Foot pain (Primary Dx); Leg pain, bilateral Discharge Disposition: Home Social History Tobacco Use Types Packs/Day Years Used Date Smoking Tobacco: Never Assessed Sex and Gender Information Value Date Recorded Sex Assigned at Not on file Gender Identity Not on file Sexual Orientation Not on file documented as of this encounter Last Filed Vital Signs Vital Sign Reading Time Taken Comments Blood Pressure 98/60 06/24/2011 8:29 AM EDT Pulse - - Temperature - - Respiratory Rate - - Oxygen Saturation - - Inhaled Oxygen Concentration - - Weight 27.4 kg (60 lb 8 oz) 06/24/2011 8:29 AM E DT Height 130.8 cm (4' 3.5) 06/24/2011 8:29 AM EDT Body Mass Index 16.04 06/24/2011 8:29 AM EDT Body Mass Index Percentile 60.20% 06/24/2011 8:2 9 AM EDT Growth Chart: CDC (Boys, 2-2 0 Years) documented in this encounter Progress Notes * Juliana Mishra MD - 07/11/2011 12:13 PM EDT Nguyễn is a 5-year-old young man who is seen in followup with his bilateral foot pain. I initially met him in October at which time exam was reassuring, although there had been some question of some subtle heel cord tightness. He was referred to physical therapy and orthotics were fabricated. He is doing reasonably well, although while he has few complaints of pain mother has noted episodes of limping and obvious alterations in his gait. On examination today, Nguyễn is a pleasant young man in no acute distress. He was seen ambulating in the hallway, which he can do with heel-toe gait bilaterally. He is able to run, feel fluidly. I cannot precipitate those alterations in gait that mom is able to see when they are a bit more active or longer distance. He has got supple and symmetric range of motion through both hips. Both knees have no evidence of effusions, supple flexion and extension. Both ankles are without effusion, except supple dorsiflexion and plantarflexion to at least a few degrees above neutral. Good hindfoot motion. We did because of some concerns of perhaps some hip pain obtained from pelvis films, AP and frog lateral pelvis which were negative. ASSESSMENT: Intermittent limp and complaints of lower extremity discomfort. PLAN: Discussed with mom that while there were not specific physical findings that would specifically relate to an inflammatory process, I think it would be appropriate to get some lab works to rule that out. We have sent him for a CBC, sedimentation rate, C-reactive protein, MANISH, rheumatoid factor and Lyme titer. I will contact him once we see the results of the laboratory work and plan on seeing him back in six to eight weeks' time. documented in this encounter Plan of Treatment Not on file documented as of this encounter Procedures Procedure Name Priority Date/Time Associated Diagnosis Comments LYME IGG & IGM ANTIBODY Routine 06/24/2011 9:46 AM EDT Foot pain DNA ANTIBODY (DOUBLE-STRANDED) Routine 06/24/2011 9:46 AM EDT DIFFERENTIAL, AUTOMATED Routine 06/24/2011 9:46 AM EDT MANISH TITER Routine 06/24/2011 9:46 AM EDT SEDIMENTATION RATE Routine 06/24/2011 9: 46 AM EDT Foot pain CBC (WITH DIFF) Routine 06/24/2011 9:46 AM EDT Foot pain RHEUMATOID FACTOR, QUANT Routine 06/24/2011 9:46 AM EDT Foot pain CRP, CARDIAC RISK (HS CRP) Routine 06/24/2011 9:46 AM EDT Foot pain MANISH ANTIBODY SCREEN Routine 06/24/2011 9 :46 AM EDT Foot pain documented in this encounter Results * REFLEX LAB-MANISH TITER (06/24/2011 9:46 AM EDT) Pathologist [facility] [place] MANISH Titer positive [facility] Comment: 1:640 Titer seen with Homogeneous/Diffuse pattern. ??Is suggestive of autoantibodies to nDNA, histones, or DNA-associated proteins. Blood specimen (specimen) 06/24/2011 9:46 AM EDT 06/24/2011 11:41 AM EDT Juliana Mishra MD IMMUNOLOGY ORDERABLE S Performing Organization Address [facility] de Phone Number [facility] * DNA ANTIBODY (DOUBLE-STRANDED) (06/24/2011 9:46 AM EDT) Pathologist [facility] DNA Ab (DS) Neg Neg [facility] Blood specimen (specimen) 06/24/2011 9:46 AM EDT 06/24/2011 11:41 AM EDT Juliana Mishra MD LAB SEND OUT ORDERAB LES Performing Organization Address [facility] Co de Phone Number [facility] * (ABNORMAL) REFLEX LAB-A-DIFF (06/24/2011 9:46 AM EDT) Pathologist [facility] [place] Neutrophil % 31.6(L) 33.0 - 73.0 % [facility] Neutrophil Absolute 1.53 1.50 - 8.00 x10(3)/mc L [facility] Lymph % 55.5 22.0 - 57.0 % [facility] Lymphocytes Abs 2.7 1.5 - 6.8 x10(3)/mc L [facility] Monocyte % 10.7 2.0 - 12.0 % [facility] Monocyte Abs 0.5 0.2 - 1.0 x10(3)/mc L [facility] Eos % 1.6 0.0 - 7.0 % [facility] Eosinophils Abs 0.1 0.0 - 0.5 x10(3)/mc L [facility] Basophil % 0.6 0.0 - 2.0 % [facility] Baso Absolute 0.0 0.0 - 0.2 x10(3)/mc L [facility] Immature Gran % 0.00 0.00 - 0.66 % [facility] Comment: Immature granulocytes(IG's)percentage and absolute count will include metamyelocytes, myelocytes, and promyelocytes. Blood smears from CBCs yielding IG's will be scanned manually for concordance. If this scan disagrees with the automated IG or if promyelocytes are noted, a manual differential will be performed. Immature Gran Absolute 0.00 0.00 - 0.05 x10(3)/mc L [facility] Blood specimen (specimen) 06/24/2011 9:46 AM EDT 06/24/2011 9:51 AM EDT Juliana Mishra MD HEMATOLOGY ORDERABLE S Performing Organization Address City/[facility] Co de Phone Number [facility] * Sedimentation rate (06/24/2011 9:46 AM EDT) Sedimentation Rate Automated 7 0 - 10 mm/hr [facility] Blood specimen (specimen) 06/24/2011 9:46 AM EDT 06/24/2011 9:51 AM EDT Juliana Mishra MD HEMATOLOGY ORDERABLE S Performing Organization Address City/State/[facility] Co de Phone Number [facility] * (ABNORMAL) CBC (with Diff) (06/24/2011 9:46 AM EDT) Pathologist [facility] [place] White Blood Cell 4.9 4.5 - 14.0 x10(3)/mc L [facility] Red Blood Cell 4.46 4.00 - 5.20 x10(6)/mc L [facility] Hemoglobin 13.1 11.5 - 15.5 gm/dL [facility] Hematocrit 37.0 35.0 - 45.0 % [facility] Mean Cell Volume 83.0 75.0 - 93.0 fL [facility] Mean Cell Hemoglobin 29.4 25.0 - 33.0 pg [facility] Mean Cell Hemoglobin Concentration 35.4 32.0 - 36.5 gm/dL [facility] Platelet 257 145 - 370 x10(3)/mc L [facility] RDW Standard Deviation 36.3 35.0 - 46.0 fL [facility] RDW coefficient of variation 12.0 10.9 - 14.4 % [facility] Mean Platelet Volume 8.9(L) 9.0 - 12.0 fL [facility] Blood specimen (specimen) 06/24/2011 9:46 AM EDT 06/24/2011 9:51 AM EDT Juliana Mishra MD HEMATOLOGY ORDERABLE S Performing Organization Address [facility] Co de Phone Number [facility] * Lyme IgG & IgM Antibody (06/24/2011 9:46 AM EDT) Pathologist [facility] [place] Lyme Antibody Negative Negative [facility] Blood specimen (specimen) 06/24/2011 9:46 AM EDT 06/24/2011 10:48 AM EDT Juliana Mishra MD IMMUNOLOGY ORDERABLE S [facility] * Rheumatoid factor, quant (06/24/2011 9:46 AM EDT) Pathologist [facility] [place] Rheumatoid Factor <10 <=14 IU/mL [facility] MILLENNIUM Blood specimen (specimen) 06/24/2011 9:46 AM EDT 06/24/2011 9:51 AM EDT Juliana Mishra MD CHEMISTRY ORDERABLES Performing Organization Address [facility] de Phone Number [facility] * High Sensitivity CRP (06/24/2011 9:46 AM EDT) C-Reactive Protein High Sensitivity 0.3 mg/L [facility] Comment: Interpretations: 1) For cardiac risk assessment, two values (fasting or nonfasting sample acceptable) taken at least 2 weeks apart, should be averaged to provide a more reliable estimate of marker level. ??This laboratory uses the recommendations from the AHA/CDC Scientific Statement for interpretations of future risks of cardiovascular events: ? <1.0 mg/L: low risk 1.0 - 3.0 mg/L: moderate risk >3.0 mg/L: high risk groups for future cardiovascular events 2) The general reference range of apparently healthy individuals using this test is <5.0 mg/L (derived from the test package insert) A few words of caution: For cardiac assessment, when a value >10 mg/L is encountered, there should be a search for an acute inflammatory condition or infection (in patients with acute inflammation, the concentration can increase to >500 mg/L). ??The >10 mg/L should be discarded if such a situation exists, since the risk for coronary heart disease cannot be provided, and a repeat specimen, taken at least two weeks after resolution of the acute inflammatory condition, may allow for appraisal of coronary risk information. References: 1. Anne PALACIOS et. al. ??AHA/CDC Scientific Statement: Markers of Inflammation and Cardiovascular Disease. ??Circulation 2003; 107:499-511 2. Emmett PM. ??Clinical applications of C-reactive protein for cardiovascular disease detection and prevention. ??Circulation 2003; 107:363-369 Blood specimen (specimen) 06/24/2011 9:46 AM EDT 06/24/2011 9:51 AM EDT Juliana Mishra MD CHEMISTRY ORDERABLES Performing Organization Address [facility]/State/ZIP Co de Phone Number [facility] * (ABNORMAL) MANISH (06/24/2011 9:46 AM EDT) MANISH Pos Titer TF(A) Neg [facility] Blood specimen (specimen) 06/24/2011 9:46 AM EDT 06/24/2011 11:41 AM EDT Juliana Mishra MD LAB SEND OUT ORDERAB LES [facility] documented in this encounter Visit Diagnoses Diagnosis Foot pain- Primary Pain in limb Leg pain, bilateral Pain in limb documented in this encounter Care Teams Manager Commission Relationship Specialty Start Date End Date Mallory Arce MD [facility] [place] [address] PCP - General 10/13/10 06/23/15 documented as of this encounter
--- OUTSIDE RECORDS SUMMARY | 2024-11-09 13:55 | XMS_ITS | Encounter Summary ---
Author Organization [facility] Address [address] [place] [address] Care Team Providers Care Air Valve Mechanic Name Role Phone Shayne Kraus MD Primary Care Provider [phone] Encounter Details Date Type Department Care Team (Late st Contact Info) Description 08/31/[address] [facility] Pathology & Laboratory Medicine - [facility] [address] [place], [place] [address] Outr Resulting Lab, Provider Social History Tobacco [...] Procedure Name Priority Date/Time Associated Diagnosis Comments CHLAMYDIA/N. GONORRHOEAE AMPLIFIED NUCLEIC ACID Routine 08/30/2022 16:41 EDT documented in this encounter Results * CHLAMYDIA/N. GONORRHOEAE AMPLIFIED RNA (08/30/2022 16:41 EDT) Neisseria gonorrhoeae Result Negative Negative 09/01/2022 16:55 EDT [facility] Chlamydia trachomatis Result Negative Negative 09/01/2022 16:55 EDT [facility] Urine URINE / Unknown 08/30/2022 1 6:41 EDT 08/31/2022 16:49 EDT us Provider Outr Resulting Lab MICROBIOLOGY - GENER AL ORDERABLES Final Result Performing Organization Address City/State/[facility] Co de Phone Number [facility] [address] [place] [address] documented in this encounter Visit Diagnoses Not on filedocumented in this encounter Care Teams Air Valve Mechanic Relationship Specialty Start Date End Date Shayne Kraus MD [address] [place] [address] [place] [address] PCP - General 01/17/19 documented as of this encounter
--- OUTSIDE RECORDS SUMMARY | 2024-11-09 13:55 | XMS_ITS | Encounter Summary ---
Author Organization [facility] [place] [address] Care Team Providers Care Messaging Architect Name Role Phone Shayne Kraus MD Primary Care Provider [phone] Reason for Referral * Consultation (Routine) - Closed Specialty Diagnoses / Procedures Referred By Olga livingston Referred To Contact Orthopaedics Diagnoses Pain in wrist, unspecified laterality Roseanne Richard MD [address] [place] [address] Lauren Leslie MD [address] [place] [address] Referral ID Status Reason Start Date Expiration Date V isits Requested Visits Authorized [id number] Closed Consult, Test & Treat PCP Updated and/or Approved 10/19/2022 10/19/2023 6 6 Encounter Details Date Type Department Care Team (Latest Contact Info) Description 10/19/2022 Transcribe Orders eDH Incoming Referrals [phone] Roseanne Richard MD [address] [place] [address] Pain in wrist, unspecified laterality Social History Tobacco Use Types Packs/Day Years Used Date Smoking Tobacco: Never Smokeless Tobacco: Never Comments:No smokers in the h ome Sex and Gender Information Value Date Recorded Sex Assigned at Not on file Gender Identity Not on file Sexual Orientation Not on file documented as of this encounter Plan of Treatment Scheduled Referrals Name Type Priority Associated Diagnoses Orde r Schedule Referral to Orthopaedics Outpatient Referral Routine Pain In Wrist, Unspecified Laterality Ordered: 10/19/2022 documented as of this encounter Visit Diagnoses Diagnosis Pain in wrist, unspecified laterality documented in this encounter Care Teams Messaging Architect Relationship Specialty Start Date End Date Shayne Kraus MD [address] [place] [address] PCP - General 06/24/15 documented as of this encounter
--- OUTSIDE RECORDS SUMMARY | 2024-11-09 13:55 | XMS_ITS | Encounter Summary ---
Author Organization [facility] [place] [address] Care Team Providers Care Special Shopper Name Role Phone Mallory Arce MD Primary Care Provider [phone] Reason for Referral * Consultation (Routine) - Complete - Patient Will Schedule External Appt Specialty Diagnoses / Procedures Referred By Olga livingston Referred To Contact Orthotics Diagnoses Leg pain, bilateral Juliana Mishra MD [facility] [place] [address] Referral ID Status Reason Start Date Expiration Date Visits Requested Visits Authorized [id number] Complete - Patient Will Schedule External Appt Assume Subset of Care 11/24/2011 05/22/2012 1 1 Reason for Visit * Reason Comments Bilateral Foot Pain F/U AFTER SEEING [facility] E[facility]OLOG[facility] Encounter Details Date Type Department Care Team (Late st Contact Info) Description 11/24/2011 11:40 AM EST [place] [address] Juliana Mishra MD Leg pain, bilateral (Primary Dx) Discharge Disposition: Home Social History Tobacco Use Types Packs/Day Years Used Date Smoking Tobacco: Former Sex and Gender Information Value Date Recorded Sex Assigned at Not on file Gender Identity Not on file Sexual Orientation Not on file documented as of this encounter Progress Notes * Juliana Mishra MD - 12/05/2011 5:18 PM EST Nguyễn is a 5-year-old young man who is seen in followup with his bilateral foot pain. I initially met him in October, at which time exam was reassuring, although there had been some question of some subtle heel cord tightness. He was referred to physical therapy and orthotics were fabricated. Concerns for foot pain and intermittent limping persist. Limping seems worse with more aggressive activity. He has been seen by Rhuematology, per mothers report, no concerns that this represents an inflammatory process. Workup has included Bilateral foot films and pelvis films which were negative. Labs were obtained: Only positive was MANISH 1:640. On examination today, Nguyễn is a pleasant young man in no acute distress. Exam today is Really without significant change from most recent. He was seen ambulating in the hallway, [...] few degrees above neutral. Good hindfoot motion. ASSESSMENT: Intermittent limp and complaints of lower extremity pain. Reassuring exam. PLAN: continued monitoring and symptomatic treatment. Also discussed potential for moving forward with advanced imaging, MRI of both feet. After review with mother, Decision to hold off unless symptoms worsen. F/u 9-12 months, earlier as needed. documented in this encounter Plan of Treatment Scheduled Referrals Name Type Priority Associated Diagnoses Orde r Schedule REFERRAL FOR ORTHOTICS Outpatient Referral Routine Leg pain, bilateral Ordered: 11/24/2011 documented as of this encounter Visit Diagnoses Diagnosis Leg pain, bilateral- Primary Pain in limb documented in this encounter Care Teams Special Shopper Relationship Specialty Start Date End Date Mallory Arce MD [facility] CHILD [facility] [facility] [place] [address] PCP - General 10/13/10 06/23/15 documented as of this encounter
--- OUTSIDE RECORDS SUMMARY | 2024-11-09 13:55 | XMS_ITS | Encounter Summary ---
[place] [address] Care Team Providers Care Crime Data Specialist Name Role Phone Mallory Arce MD Primary Care Provider [phone] Reason for Visit * Reason Onset Date Comments Results 11/23/2011 Encounter Details Date Type Department Care Team (Late st Contact Info) Description 11/23/2011 Telephone [place] [address] Sarita Brito MD Results Social History Tobacco Use Types Packs/Day Years Used Date Smoking Tobacco: Former Sex and Gender Information Value Date Recorded Sex Assigned at Not on file Gender Identity Not on file Sexual Orientation Not on file documented as of this encounter Miscellaneous Notes * Telephone Encounter - Sarita Brito MD - 11/23/2011 5:44 PM EST Mom called today requesting results of labs done locally. We had received only partial results. Rosa called and obtained the pending labs. I called mom to review them with her. His MANISH is positive, but now in a low titer. They have been doing his heel stretches more regularly and he seems to be doing better. They have a F/U with Yuliana Mishra tomorrow. Mom will keep this appointment and F/U with us PRN if he has uveitis and/or any AM symptoms or swelling. She had forgotten about getting an appointment for his eyes and she will do this. documented in this encounter Plan of Treatment Not on file documented as of this encounter Visit Diagnoses Not on filedocumented in this encounter Care Teams Crime Data Specialist Relationship Specialty Start Date End Date Mallory Arce MD [facility] CHILD ADVOCACY & [place] [address] PCP - General 10/13/10 06/23/15 documented as of this encounter
--- OUTSIDE RECORDS SUMMARY | 2024-11-09 13:55 | XMS_ITS | Encounter Summary ---
Author Organization [facility] [place] [address] Care Team Providers Care Beef Breaker Name Role Phone Mallory Arce MD Primary Care Provider [phone] Reason for Visit * Reason Comments Bilateral Foot Pain had PT and orth. abhi n moved to hips Bilateral Hip Pain Encounter Details Date Type Department Care Team (Late st Contact Info) Description 02/22/2011 8:40 AM EDT [place] [address] Juliana Mishra MD Limp (Primary Dx) Discharge Disposition: Home Social History Tobacco Use Types Packs/Day Years Used Date Smoking Tobacco: Never Assessed Sex and Gender Information Value Date Recorded Sex Assigned at Not on file Gender Identity Not on file Sexual Orientation Not on file documented as of this encounter Progress Notes * Juliana Mishra MD - 02/22/2011 11:01 AM EDT Nguyễn is a 5-year-old young man who is seen in followup of his bilateral foot pain. We met him in October, at which time he was having some foot pain. His exam was reassuring with a question of some subtle heel cord tightness. He was referred to physical therapy. He was seen once at physical therapy. New orthotics were fabricated. He was given a list of some stretching exercises which family did pretty reliably for a couple of months. He in general is doing reasonably well. Mother does describe an episode about 3 weeks ago when he was being active playing in some school-related activities in the evening. Mother noted some limping and an obvious alteration of gait with discomfort. Adrian de scribe that his hips were hurting at that time. This seemed to resolve with some rest and he was doing better by the next day. He feels that his feet are about the same although mother states that she thinks they're a little bit better. Past medical history is otherwise negative with the exception of some asthma. He currently takes noroutine medications. Family history is notable for a maternal cousin with rheumatoid arthritis. On examination today Nguyễn is a quiet young man in no acute distress. He is seen in the living with his shoes and orthotics on with a heel toe gait bilaterally and quite a nice run. The tissue itself he's got a less solid heel strike but an otherwise heel toe gait bilaterally. He runs quite smoothly. He is able to stand independently on each limb. He is able to arise and to single limb toe rise.He is able to do a single limb hop. He has supple flexion and extension at both knees with no evidence of effusion he has got supple dorsiflexion passively to please 10 bilaterally. On prone exam he is noted to have internal rotation on the right to 30 external rotation to 45. On the left he has perhaps 65 or 70 of internal rotation and 40 of external. X-rays: AP and frog lateral pelvis show normal hip development bilateral Assessment: History of foot pain and episode of hip pain. Reassuring clinical exam. Plan: Discussed continued monitoring over time. Plan would be to see Nguyễn back in 3 or 4 months time for a recheck certainly earlier there is questions or problems. documented in this encounter Plan of Treatment Not on file documented as of this encounter Procedures Procedure Name Priority Date/Time Associated Diagnosis Comments XR PELVIS AND FROG LATERAL BILAT Routine 02/22/2011 10:14 AM EDT Limp documented in this encounter Results * XR pelvis & hip 2 view child (02/22/2011 10:14 AM EDT) Anatomical Region Laterality Modality Pelvis, Hip N/A Radiographic Robyn ging 02/22/2011 10:1 4 AM EDT Impressions 02/23/2011 12:48 PM EDT IMPRESSION: ?? Normally formed, seated hips, no radiographic evidence of osteonecrosis. Film and interpretation reviewed by the attending Narrative 02/23/2011 12:48 PM EDT PELVIS, TWO VIEWS, 02/22/11: HISTORY: ?? Right hip pain, with slight decrease in internal rotation range of motion. COMPARISON: ??None. TECHNIQUE: ??Supine AP and frogleg lateral views of the pelvis were obtained. FINDINGS: ??There is no acute fracture or subluxation. ??The femoral epiphyses are normal in contour, and hips are well seated. ??The acetabula are normally formed. ??The proximal femoral physes are open and symmetric. ??The SI joints are normal. ??The sacrum and coccyx are grossly normal, with evaluation slightly limited by overlying bowel gas and stool. Procedure Note Veronica Cardenas MD - 02/23/2011 PELVIS, TWO VIEWS, 02/22/11: HISTORY: Right hip pain, with slight decrease in internal rotation rangeof motion. COMPARISON: None. TECHNIQUE: Supine AP and frogleg lateral views of the pelvis wereobtained. FINDINGS: There is no acute fracture or subluxation. The femoralepiphyses are normal in contour, and hips are well seated. The acetabula arenormally formed. The proximal femoral physes are open and symmetric. The SIjoints are normal. The sacrum and coccyx are grossly normal, with evaluationslightly limited by overlying bowel gas and stool. IMPRESSION IMPRESSION: Normally formed, seated hips, no radiographic evidence of osteonecrosis. Film and interpretation reviewed by the attending Juliana Mishra MD IMG DX ORDERABLES documented in this encounter Visit Diagnoses Diagnosis Limp- Primary Abnormality of gait documented in this encounter Care Teams Beef Breaker Relationship Specialty Start Date End Date Mallory Arce MD [facility] CHILD ADVOCACY & [place] [address] PCP - General 10/13/10 06/23/15 documented as of this encounter
--- OUTSIDE RECORDS SUMMARY | 2024-11-09 13:55 | XMS_ITS | Encounter Summary ---
Author Organization [facility] [place] [address] Care Team Providers Care Roof Cement And Paint Maker Name Role Phone Mallory Arce MD Primary Care Provider [phone] Encounter Details Date Type Department Care Team (Late st Contact Info) Description 11/09/2010 8:40 AM EST Office Visit [place] [id number] Juliana Mihsra MD Discharge Disposition: Home Social History Tobacco Use [...] on filedocumented in this encounter Care Teams Roof Cement And Paint Maker Relationship Specialty Start Date End Date Mallory Arce MD [facility] CHILD ADVOCACY & [place] [address] PCP - General 10/13/10 06/23/15 documented as of this encounter
--- OUTSIDE RECORDS SUMMARY | 2024-11-09 13:55 | XMS_ITS | Referral Summary ---
Author Organization [facility] Address [address] [place] [address] Care Team Providers Care Director Imaging Name Role Phone Shayne Kraus MD Primary Care Provider [phone] Allergies Active Allergy Reactions Criticality Noted Date [...] Mass Index - - Plan of Treatment Not on file Care Teams Director Imaging Relationship Specialty Start Date End Date Shayne Kraus MD [address] [place] [address] [facility] - General 01/17/19
--- OUTSIDE RECORDS SUMMARY | 2024-11-09 13:55 | XMS_ITS | Encounter Summary ---
Author Organization [facility] [place] [address] Care Team Providers Care Weighmaster Lead Name Role Phone Mallory Arce MD Primary Care Provider [phone] Reason for Referral * Consultation (Routine) - Closed Specialty Diagnoses / Procedures Referred By Olga livingston Referred To Contact Rheumatology Diagnoses Leg pain, bilateral Juliana Mishra MD [facility] [address] ORTHOPAEDIC SURGERY [place], [place] [address] [place] [address] Rheumatology [address] [place] [address] Referral ID Status Reason Start Date Expiration Date V isits Requested Visits Authorized [id number] Closed Consult, Test & Treat 08/25/2011 02/21/2012 1 1 Reason for Visit * Reason Comments Bilateral Foot Pain Encounter Details Date Type Department Care Team (Late st Contact Info) Description 08/25/2011 9:40 AM EDT [place] [address] Juliana Mishra MD Leg pain, bilateral (Primary [...] Sign Reading Time Taken Comments Blood Pressure 95/58 08/25/2011 9:55 AM EDT Pulse - - Temperature - - Respiratory Rate - - Oxygen Saturation - - Inhaled Oxygen Concentration - - Weight 27.2 kg (60 lb) 08/25/2011 9:55 AM EDT Height 130.8 cm (4' 3.5) 08/25/2011 9:55 AM EDT Body Mass Index 15.91 08/25/2011 9:55 AM EDT Body Mass Index Percentile 55.90% 08/25/2011 9:5 5 AM EDT Growth Chart: [facility] (Boys, 2-2 0 Years) documented in this encounter Progress Notes * Juliana Mishra MD - 09/10/2011 8:50 AM EDT Nguyễn is a 5-year-old young [...] Limping seems worse with more aggressive activity. It is better identified by mother, Nguyễn himself has a harder time documenting symptoms. At last visit, pelvis films were obtained which were negative. Labs were obtained: Only positive was MANISH 1:640. Upon review of family history with mother, there is a cousin who is seen by rheumatology for a visual impairment, of ? Inflammatory Etiology. On examination today, Nguyễn is a pleasant [...] complaints of lower extremity pain. Reassuring exam. Positive MANISH. PLAN: Discussed with mom that MANISH positive is somewhat difficult to interpret, in isolation, but Given the clinical scenario thus far, I think that referral to Rheumatology would be appropriate. Idid have an Opportunity to review this with Dr. Brito, who agreed with Rheumatology referral. Also discussed potential for moving forward with advanced imaging, MRI of both feet. After review with mother, Decision to hold off until after Rheumatolgy consultation=. Follow up after Rheumatology appointment, documented in this encounter Plan of Treatment Scheduled Referrals Name Type Priority Associated Diagnoses Order Schedule REFERRAL TO PEDIATRIC RHEUMATOLOGY Outpatient Referral Routine Leg pain, bilateral Ordered: 08/25/2011 documented as of this encounter Visit Diagnoses Diagnosis Leg pain, bilateral- Primary Pain in limb documented in this encounter Care Teams Weighmaster Lead Relationship Specialty Start Date End Date Mallory Arce MD [facility] DR CHILD ADVOCACY & [place] [address] PCP - General 10/13/10 06/23/15 documented as of this encounter
[2024-11-09 14:23] LABS: ALT 46 U/L (16-63); AST 23 U/L (15-37); Albumin 4.2 g/dL (3.4-5.0); Alkaline Phosphatase 82 U/L (46-116); Anion Gap 6.8 mmol/L (3-11); BUN 14 mg/dL (7-18); Bilirubin, Total 0.48 mg/dL (0.2-1.0); CO2 30.2 mmol/L (21.0-32.0); Calcium 9.2 mg/dL (8.5-10.1); Chloride 106 mmol/L (98-107); Glucose 89 mg/dL (74-106); Potassium 4.1 mmol/L (3.5-5.1); Sodium 143 mmol/L (136-145); TSH (W/Ref FT4) 1.73 uIU/mL (0.36-3.74); Total Protein 7.5 g/dL (6.4-8.2)
[2024-11-09 14:24] LABS: C-Reactive Protein < 0.50 mg/dL (<or=0.5)
[2024-11-12 14:44] LABS: IgA 155 mg/dL (85-499); Interpretation (See Note); Tissue Transglutaminase IgA <4.0 CU (<20.0)
== END 2024-11-09 13:53 | disposition home or self-care (01) ==
LOC: LBO 13:53
PROVIDERS: PCP Student in an Organized Health Care Education/Training Program; Visit Provider Pediatrics
DX: K52.9 Noninfective gastroenteritis and colitis, unspecified (principal); R10.9 Unspecified abdominal pain
CPT/HCPCS: 36415; 80053; 82784; 83516; 85652; 84443; 85025; 86140

== ENCOUNTER 2024-11-12 14:36 | Outpatient (REF) | payer BC, SELFPAY ==
--- OUTSIDE RECORDS SUMMARY | 2024-11-12 14:37 | XMS_ITS | Encounter Summary ---
Author Organization [facility] [place] [address] Care Team Providers Care Bone Crusher Name Role Phone Mallory Arce MD Primary Care Provider [phone] Reason for Referral * Consultation (Routine) - Closed Specialty Diagnoses / Procedures Referred By Olga livingston Referred To Contact Rheumatology Diagnoses Leg pain, bilateral Juliana Mishra MD [facility] [address] ORTHOPAEDIC SURGERY [place], [place] [address] [place] [address] Rheumatology [address] [place] [address] Referral ID Status Reason Start Date Expiration Date V isits Requested Visits Authorized [id number] Closed Consult, Test & Treat 08/25/2011 02/21/2012 1 1 Reason for Visit * Reason Comments Bilateral Foot Pain Encounter Details Date Type Department Care Team (Late st Contact Info) Description 08/25/2011 9:40 AM EDT Follow-[place] [address] Juliana Mishra MD Leg pain, [...] 08/25/2011 9:5 5 AM EDT Growth Chart: [facility] (Boys, 2-2 0 Years) documented in [...] limb documented in this encounter Care Teams Bone Crusher Relationship Specialty Start Date End Date Mallory Arce MD [facility] [address] CHILD ADVOCACY & [place] [address] PCP - General 10/13/10 06/23/15 documented as of this encounter
--- OUTSIDE RECORDS SUMMARY | 2024-11-12 14:37 | XMS_ITS | Encounter Summary ---
Author Organization [facility] Address [address] [place] [address] Care Team Providers Care Baseball Inspector And Repairer Name Role Phone Shayne Kraus MD Primary Care Provider [phone] Encounter Details Date Type Department Care Team (Late st Contact Info) Description 07/15/2021 Lab Requisition [facility] Pathology & Laboratory Medicine - [facility] [address] [place], [place] [address] Outr Resulting Lab, Provider Social History Tobacco [...] ID No fungi isolated 08/12/2021 8:28 EDT [facility] Fungal Smear No Fungi Seen 08/12/2021 8:28 EDT [facility] Skin TISSUE SPECIMEN FROM SKIN / Unknown 07/14/2021 16:40 EDT 07/15/2021 17:15 EDT us Provider Outr Resulting Lab MICROBIOLOGY - GENER AL ORDERABLES Final Result Performing Organization Address City/State/[facility] Co de Phone Number [facility] [address] [place] [address] documented in this encounter Visit Diagnoses Not on filedocumented in this encounter Care Teams Baseball Inspector And Repairer Relationship Specialty Start Date End Date Shayne Kraus MD [address] [place] [address] [place] [address] PCP - General 01/17/19 documented as of this encounter
--- OUTSIDE RECORDS SUMMARY | 2024-11-12 14:37 | XMS_ITS | Encounter Summary ---
Author Organization [facility] [address] Care Team Providers Care Wind Farm Engineer Name Role Phone Shayne Kraus MD Primary Care Provider [phone] Reason for Visit * Consultation (Routine) - Closed Specialty Diagnoses / Procedures Referred By Olga livingston Referred To Contact Pediatric Surgery Diagnoses Pilonidal cyst with abscess Shayne Kraus MD [address] [place] [address] [place] [address] [facility] [address] [place] [id number] Referral ID Status Reason Start Date Expiration Date V isits Requested Visits Authorized [id number] Closed Consult, Test & Treat [facility] PCP Updated and/or Approved 09/04/2021 09/04/2022 6 6 Encounter Details Date Type Department Care Team (Late st Contact Info) Description 10/14/2021 9:45 AM EST Office [place] [address] Yoly Navarro MD [facility] [place] [address] Pilonidal disease Social History Tobacco [...] 10/14/2021 9:4 8 AM EST Growth Chart: [facility] (Boys, 2-2 0 Years) documented in this encounter H&P Notes * Darion Steiner MD - 10/14/2021 9:45 AM EST General Surgery Clinic Note Nguyễn Ramirez 2005 [id number] Chief complaint: pilonidal cyst HPI:Nguyễn is an otherwise healthy 15 year old young man Who we have been asked to see by Shayne Kraus MD For evaluation of pilonidal disease. Nguyễn is accompanied today by his mother. He reports that he first had an episode of sacral pain about 2 years ago at which time he saw a surgeon at [facility], was diagnosed with pilonidal disease which was [...] by Dr. Steiner. Yoly Navarro MD, MPH informatics coordinator [facility] [address] fax documented in this encounter Plan of Treatment Not on file documented as of this encounter Visit Diagnoses Diagnosis Pilonidal disease Other specified disorder of skin documented in this encounter Care Teams Wind Farm Engineer Relationship Specialty Start Date End Date Shayne Kraus MD [address] [place] [address] PCP - General 06/24/15 documented as of this encounter
--- OUTSIDE RECORDS SUMMARY | 2024-11-12 14:37 | XMS_ITS | Encounter Summary ---
Author Organization [facility] [place] [address] Care Team Providers Care Mobile Home Technician Name Role Phone Shayne Kraus MD Primary Care Provider [phone] Reason for Referral * Diagnostic Test (Routine) - Closed Specialty Diagnoses / Procedures Referred By Olga livingston Referred To Contact Radiology Diagnoses Periodic headache syndrome, not intractable Procedures MRI Brain wo Contrast Ehsan Higuera MD [facility] [place] [address] [place] [address] Referral ID Status Reason Start Date Expiration Date V isits Requested Visits Authorized [id number] Closed Specialty Service Requested 04/15/2019 06/13/2019 1 1 Reason for Visit * Diagnostic Test (Routine) - Closed Specialty Diagnoses / Procedures Referred By Olga livingston Referred To Contact Radiology Diagnoses Periodic headache syndrome, not intractable Procedures MRI Brain wo Contrast Ehsan Higuera MD [facility] [place] [address] [place] [address] Referral ID Status Reason Start Date Expiration Date V isits Requested Visits Authorized [id number] Closed Specialty Service Requested 04/15/2019 06/13/2019 1 1 Encounter Details Date Type Department Care Team (Latest Contact Info) Description 04/18/2019 4:45 PM EDT - 04/18/2019 11:59 PM EDT Hospital [place] [address] Ehsan Higuera MD [facility] [address] [place] [address] Periodic headache syndrome, not intractable Discharge Disposition: [...] migrainosus documented in this encounter Care Teams Mobile Home Technician Relationship Specialty Start Date End Date Shayne Kraus MD [address] [place] [address] PCP - General 06/24/15 documented as of this encounter
--- OUTSIDE RECORDS SUMMARY | 2024-11-12 14:37 | XMS_ITS | Encounter Summary ---
Author Organization [facility] Address [address] [place] [address] Care Team Providers Care Apprentice Cosmetologist Name Role Phone Shayne Kraus MD Primary Care Provider [phone] Reason for Visit * Reason Comments Ankle Pain playing basketball, came down on another players foot. Laterally rolled ankle. Pain to L lateral malleolus with swelling. DP/PT pulses palpable. Encounter Details Date Type Department Care Team (Late st Contact Info) Description 01/17/2019 19:19 EST - 01/17/2019 20:18 EST Emergency [facility] Emergency Department - Main [address] [address] Anila Fox, PA-C [address] [place] [address], [address] [place] [id number] Emergency, MD Victorino Closed Salter-Watt type I [...] through Care Everywhere. * FRACTURE: SALTER-WATT: PEDIATRIC (MAORI) documented in this encounter Discharge Disposition Disposition [...] 01/17/2019 documented in this encounter Care Teams Apprentice Cosmetologist Relationship Specialty Start Date End Date Shayne Kraus MD [address] [facility] [address] PCP - General 01/17/19 documented as of this encounter
--- OUTSIDE RECORDS SUMMARY | 2024-11-12 14:37 | XMS_ITS | Encounter Summary ---
Author Organization [facility] Address [facility] [place] [address] Care Team Providers Care Sorter Laundry Articles Name Role Phone Shayne Kraus MD Primary Care Provider [phone] Reason for Visit * Reason Comments Other Headache Encounter Details Date Type Department Care Team (Late st Contact Info) Description 08/02/2019 1:00 PM EDT Office [place] [address] Ehsan Higuera MD [facility] [address] PEDIATRIC [place] [address] Periodic headache syndrome, not intractable Social History [...] and 2+ on the left side. Normal [id number]. Normal tandem walking. Vitals reviewed. Assessment and [...] migrainosus documented in this encounter Care Teams Sorter Laundry Articles Relationship Specialty Start Date End Date Shayne Kraus MD [address] [place] [address] PCP - General 06/24/15 documented as of this encounter
--- OUTSIDE RECORDS SUMMARY | 2024-11-12 14:37 | XMS_ITS | Clinical Summary ---
Author Organization [facility] Address [facility] [place] [address] Care Team Providers Care Daytime Babysitter Name Role Phone Shayne Kraus MD Primary Care Provider [phone] Allergies Active Allergy Reactions Criticality Noted Date [...] - Influenza standard series) 07/22/2024 Care Teams Daytime Babysitter Relationship Specialty Start Date End Date Shayne Kraus MD [address] [place], [place] [id number] PCP - General 06/24/15
--- OUTSIDE RECORDS SUMMARY | 2024-11-12 14:37 | XMS_ITS | Encounter Summary ---
Author Organization [facility] Address [facility] [place] [address] Care Team Providers Care Metal Bench Patternmaker Name Role Phone Shayne Kraus MD Primary Care Provider [phone] Reason for Visit * Reason Comments Visual Disturbance Encounter Details Date Type Department Care Team (Late st Contact Info) Description 06/24/2015 2:45 PM EDT Office Visit [place] [address] Ehsan Higuera MD [facility] [address] [place] [address] Visual disturbance Discharge Disposition: Home Social History [...] 06/24/2015 3:1 0 PM EDT Growth Chart: [facility] [...] clinic consult. This consult was requested by Nick Levine M.D. for evaluation for Kelly in [...] disturbance documented in this encounter Care Teams Metal Bench Patternmaker Relationship Specialty Start Date End Date Shayne Kraus MD [address] [place] [address] PCP - General 06/24/15 documented as of this encounter
--- OUTSIDE RECORDS SUMMARY | 2024-11-12 14:37 | XMS_ITS | Clinical Summary ---
Author Organization [facility] Address [address] [place] [address] Care Team Providers Care Tire Bagger Name Role Phone Shayne Kraus MD Primary Care Provider [phone] Allergies Active Allergy Reactions Criticality Noted Date Comments Codeine 01/17/2019 Medications No known medications Encounters Date Type Department Care Team Description 11/09/2024 Lab Requisition [facility] Pathology & Laboratory Medicine - [address] [address] Outr Resulting Lab, Provider from Last 3 Months Social History Tobacco Use Types Packs/Day Years [...] COVID-19 Vaccine (2023- season) 2024 Care Teams Tire Bagger Relationship Specialty Start Date End Date Shayne Kraus MD [address] [place] [address] PCP - General 01/17/19
--- OUTSIDE RECORDS SUMMARY | 2024-11-12 14:37 | XMS_ITS | Encounter Summary ---
[place] [address] Care Team Providers Care Feather Stitcher Name Role Phone Mallory Arce MD Primary Care Provider [phone] Reason for Visit * Reason Onset Date Comments Results 11/23/2011 Encounter Details Date Type Department Care Team (Late st Contact Info) Description 11/23/2011 Telephone [place] [address] Sarita Brito MD Results Social History Tobacco Use Types Packs/Day Years Used Date Smoking Tobacco: Former Sex and Gender Information Value Date Recorded Sex Assigned at Not on file Gender Identity Not on file Sexual Orientation Not on file documented as of this encounter Miscellaneous Notes * Telephone Encounter - Rosa Ortiz, RN - 11/23/2011 2:33 PM EST Called [facility] lab and asked that they send us the pending labs, MANISH, DNAand HUI from 11/05/11. * Telephone Encounter - Rosa Ortiz RN - 11/23/2011 2:02 PM EST This nurse received call from Rheum membership secretary Ephraim Talley. She took call from mom [...] on filedocumented in this encounter Care Teams Feather Stitcher Relationship Specialty Start Date End Date Mallory Arce MD [facility] CHILD ADVOCACY & [place] [address] PCP - General 10/13/10 06/23/15 documented as of this encounter
--- OUTSIDE RECORDS SUMMARY | 2024-11-12 14:37 | XMS_ITS | Encounter Summary ---
Author Organization [facility] [place] [address] Care Team Providers Care Controls Project Engineer Name Role Phone Shayne Kraus MD Primary Care Provider [phone] Reason for Referral * Consultation (Routine) - Closed Specialty Diagnoses / Procedures Referred By Olga livingston Referred To Contact Orthopaedics Diagnoses Pain in wrist, unspecified laterality Roseanne Richard MD [address] [place] [address] Lauren Leslie MD [address] [place] [address] Referral ID Status Reason Start Date Expiration Date V isits Requested Visits Authorized [id number] Closed Consult, Test & Treat PCP Updated and/or Approved 10/19/2022 10/19/2023 6 6 Encounter Details Date Type Department Care Team (Latest Contact Info) Description 10/19/2022 Transcribe Orders eDH Incoming Referrals [phone] Roseanne Richard MD [address] [place] [address] Pain in wrist, unspecified laterality [...] laterality documented in this encounter Care Teams Controls Project Engineer Relationship Specialty Start Date End Date Shayne Kraus MD [address] [place] [address] PCP - General 06/24/15 documented as of this encounter
--- OUTSIDE RECORDS SUMMARY | 2024-11-12 14:37 | XMS_ITS | Encounter Summary ---
Author Organization [facility] [place] [address] Care Team Providers Care Pin Inserter Name Role Phone Mallory Arce MD Primary Care Provider [phone] Reason for Referral * Consultation (Routine) - Complete - Patient Will Schedule External Appt Specialty Diagnoses / Procedures Referred By Olga livingston Referred To Contact Orthotics Diagnoses Leg pain, bilateral Juliana Mishra MD [facility] [place] [address] Referral ID Status Reason Start Date Expiration Date Visits Requested Visits Authorized [id number] Complete - Patient Will Schedule External Appt Assume Subset of Care 11/24/2011 05/22/2012 1 1 Reason for Visit * Reason Comments Bilateral Foot Pain F/U AFTER SEEING [facility] EMATOLOGY Encounter Details Date Type Department Care Team (Late st Contact Info) Description 11/24/2011 11:40 AM EST [place] [address] Juliana Mishra MD Leg pain, bilateral (Primary [...] limb documented in this encounter Care Teams Pin Inserter Relationship Specialty Start Date End Date Mallory Arce MD [facility] CHILD ADVOCACY & [place] [address] PCP - General 10/13/10 06/23/15 documented as of this encounter
--- OUTSIDE RECORDS SUMMARY | 2024-11-12 14:37 | XMS_ITS | Encounter Summary ---
Author Organization [facility] Address [address] [place] [address] Care Team Providers Care Director Global Intelligence Name Role Phone Shayne Kraus MD Primary Care Provider [phone] Encounter Details Date Type Department Care Team (Late st Contact Info) Description 08/31/2022 Lab Requisition [facility] Pathology & Laboratory Medicine - [facility] [address] [place], [place] [address] Outr Resulting Lab, Provider Social History Tobacco [...] gonorrhoeae Result Negative Negative 09/01/2022 16:55 EDT [facility] Chlamydia trachomatis Result Negative Negative 09/01/2022 16:55 EDT [facility] Urine URINE / Unknown 08/30/2022 1 6:41 EDT 08/31/2022 16:49 EDT us Provider Outr Resulting Lab MICROBIOLOGY - GENER AL ORDERABLES Final Result Performing Organization Address City/State/[facility] Co de Phone Number [facility] [address] [place] [address] documented in this encounter Visit Diagnoses Not on filedocumented in this encounter Care Teams Director Global Intelligence Relationship Specialty Start Date End Date Shayne Kraus MD [address] [place] [address] [place] [address] PCP - General 01/17/19 documented as of this encounter
--- OUTSIDE RECORDS SUMMARY | 2024-11-12 14:37 | XMS_ITS | Encounter Summary ---
[place] [address] Care Team Providers Care Manager Of Software Development Name Role Phone Mallory Arce MD Primary Care Provider [phone] Reason for Visit * Reason Comments Bilateral Foot Pain Encounter Details Date Type Department Care Team (Late st Contact Info) Description 06/24/2011 8:20 AM EDT [place] [id number] Juliana Mishra MD Foot pain (Primary Dx); [...] LAB-MANISH TITER (06/24/2011 9:46 AM EDT) Pathologist [facility] MANISH Titer positive [facility] Comment: 1:640 Titer seen with Homogeneous/Diffuse pattern. ??Is suggestive of autoantibodies to nDNA, histones, or DNA-associated proteins. Blood specimen (specimen) 06/24/2011 9:46 AM EDT 06/24/2011 11:41 AM EDT Juliana Mishra MD IMMUNOLOGY ORDERABLE S Performing Organization Address [facility] de Phone Number [facility] * DNA ANTIBODY (DOUBLE-STRANDED) (06/24/2011 9:46 AM EDT) Pathologist [facility] DNA Ab (DS) Neg Neg [facility] Blood specimen (specimen) 06/24/2011 9:46 AM EDT 06/24/2011 11:41 AM EDT Juliana Mishra MD LAB SEND OUT ORDERAB LES Performing Organization Address [facility] Co de Phone Number [facility] * (ABNORMAL) REFLEX LAB-A-DIFF (06/24/2011 9:46 AM EDT) Pathologist [facility] Neutrophil % 31.6(L) 33.0 - 73.0 % [facility] Neutrophil Absolute 1.53 1.50 - 8.00 [...] MD HEMATOLOGY ORDERABLE S Performing Organization Address City/[facility] Co de Phone Number [facility] * Sedimentation rate (06/24/2011 9:46 AM EDT) Sedimentation Rate Automated 7 0 - 10 mm/hr [facility] Blood specimen (specimen) 06/24/2011 9:46 AM EDT 06/24/2011 9:51 AM EDT Juliana Mishra MD HEMATOLOGY ORDERABLE S Performing Organization Address City/State/[facility] Co de Phone Number [facility] * (ABNORMAL) CBC (with Diff) (06/24/2011 9:46 AM EDT) Pathologist [facility] White Blood Cell 4.9 4.5 - 14.0 x10(3)/mc L [facility] Red Blood Cell 4.46 4.00 - [...] MD HEMATOLOGY ORDERABLE S Performing Organization Address [facility] Co de Phone Number [facility] * Lyme IgG & IgM Antibody (06/24/2011 9:46 AM EDT) Pathologist [facility] Lyme Antibody Negative Negative [facility] Blood specimen (specimen) 06/24/2011 9:46 AM EDT 06/24/2011 10:48 AM EDT Juliana Mishra MD IMMUNOLOGY ORDERABLE S [facility] * Rheumatoid factor, quant (06/24/2011 9:46 AM EDT) Pathologist [facility] Rheumatoid Factor <10 <=14 IU/mL [facility] MILLENNIUM Blood specimen (specimen) 06/24/2011 9:46 AM EDT 06/24/2011 9:51 AM EDT Juliana Mishra MD CHEMISTRY ORDERABLES Performing Organization Address [facility] de Phone Number [facility] * High Sensitivity CRP (06/24/2011 9:46 AM EDT) C-Reactive Protein High Sensitivity 0.3 mg/L [facility] Comment: Interpretations: 1) For cardiac risk assessment, [...] Mishra MD CHEMISTRY ORDERABLES Performing Organization Address [facility]/State/ZIP Co de Phone Number [facility] * (ABNORMAL) MANISH (06/24/2011 9:46 AM EDT) MANISH Pos Titer TF(A) Neg [facility] Blood specimen (specimen) 06/24/2011 9:46 AM EDT 06/24/2011 11:41 AM EDT Juliana Mishra MD LAB SEND OUT ORDERAB LES [facility] documented in this encounter Visit Diagnoses Diagnosis Foot pain- Primary Pain in limb Leg pain, bilateral Pain in limb documented in this encounter Care Teams Manager Of Software Development Relationship Specialty Start Date End Date Mallory Arce MD [facility] CHILD ADVOCACY & [place] [address] PCP - General 10/13/10 06/23/15 documented as of this encounter
--- OUTSIDE RECORDS SUMMARY | 2024-11-12 14:37 | XMS_ITS | Encounter Summary ---
[place] [address] Care Team Providers Care Communications Department Chair Name Role Phone Shayne Kraus MD Primary Care Provider [phone] Reason for Referral * Diagnostic Test (Routine) - Closed Specialty Diagnoses / Procedures Referred By Olga t Referred To Contact Radiology Diagnoses Periodic headache syndrome, not intractable Procedures MRI Brain wo Contrast Ehsan Higuera MD [facility] DR P[place] [address] [place] [address] Referral ID Status Reason Start Date Expiration Date V isits Requested Visits Authorized [id number] Closed Specialty Service Requested 04/15/2019 06/13/2019 1 1 Reason for Visit * Reason Comments Other dizziness and headac hes * Consultation (Routine) - Closed Specialty Diagnoses / Procedures Referred By Olga t Referred To Contact Child Neurology and Development Diagnoses [employer], [employer] Shayne Kraus MD [address] [place] [address] [place] [address] [facility] Pedi Neurology [address] [place] [phone] Referral ID Status Reason Start Date Expiration Date V isits Requested Visits Authorized [id number] Closed Consult, Test & Treat [facility] 01/25/2019 01/25/2020 1 1 Encounter Details Date Type Department Care Team (Late st Contact Info) Description 04/04/2019 2:30 PM EDT Office Visit [place] [address] Ehsan Higuera MD [facility] DR PEDIATR[place] [address] Periodic headache syndrome, not intractable Social History [...] 04/04/2019 2:3 7 PM EDT Growth Chart: [facility] (Boys, 2-2 0 Years) documented in [...] consult. This consult was requested by Shayne Kraus MD for evaluation of dizziness and headaches. [...] the day when he was visiting the [facility] in [place], [place]. It was during the day [...] they occur during the day, he should [id number] mg ibuprofen. If the child is having [...] report, please contact the number below. ? Electronically signed by: Socrates Singh [facility] ([phone]), at 04/19/2019 10:04 AM Narrative 04/19/2019 10:04 AM EDT EXAMINATION: MRI [...] this report, please contact the number below. Electronically signed by: Socrates Singh [facility]([phone]), at 04/19/2019 10:04 AM Ehsan Higuera MD IMG MRI ORDERABLES documented in this encounter Visit Diagnoses Diagnosis Periodic headache syndrome, not intractable Variants of migraine, not elsewhere classified, without mention of intractable migraine without mention of status migrainosus Periodic headache syndrome, not intractable Variants of migraine, not elsewhere classified, without mention of intractable migraine without mention of status migrainosus documented in this encounter Care Teams Communications Department Chair Relationship Specialty Start Date End Date Shayne Kraus MD [address] [place] [address] PCP - General 06/24/15 documented as of this encounter
--- OUTSIDE RECORDS SUMMARY | 2024-11-12 14:37 | XMS_ITS | Encounter Summary ---
Author Organization [facility] [place] [address] Care Team Providers Care Rejected Items Clerk Name Role Phone Mallory Arce MD Primary Care Provider [phone] Reason for Visit * Reason Comments Bilateral Foot Pain had PT and orth. abhi n moved to hips Bilateral Hip Pain Encounter Details Date Type Department Care Team (Late st Contact Info) Description 02/22/2011 8:40 AM EDT [place] [address] Juliana Mishra MD Limp (Primary Dx) Discharge Disposition: Home Social History Tobacco Use Types Packs/Day Years Used Date Smoking Tobacco: Never Assessed Sex and Gender Information Value Date Recorded Sex Assigned at Not on file Gender Identity Not on file Sexual Orientation Not on file documented as of this encounter Progress Notes * Juliana Mihsra MD - 02/22/2011 11:01 AM EDT Nguyễn [...] gait documented in this encounter Care Teams Rejected Items Clerk Relationship Specialty Start Date End Date Mallory Arce MD [facility] CHILD ADVOCACY & [place] [address] PCP - General 10/13/10 06/23/15 documented as of this encounter
--- OUTSIDE RECORDS SUMMARY | 2024-11-12 14:37 | XMS_ITS | Referral Summary ---
Author Organization [facility] Address [address] [place] [address] Care Team Providers Care Abrasive Grader Name Role Phone Shayne Kraus MD Primary Care Provider [phone] Encounters Date Type Department Care Team Description 11/09/2024 Lab Re[address] [facility] Pathology & Laboratory Medicine - [facility] [address] [place] [address] Outr Resulting Lab, Provider from Last 3 Months Allergies Active Allergy Reactions Criticality Noted Date [...] of Treatment Not on file Care Teams Abrasive Grader Relationship Specialty Start Date End Date Shayne Kraus MD [address] [place] [address] [facility] [place] [address] PCP - General 01/17/19
--- OUTSIDE RECORDS SUMMARY | 2024-11-12 14:37 | XMS_ITS | Encounter Summary ---
[place] [address] Care Team Providers Care Mid Level Net Developer Name Role Phone Mallory Arce MD Primary Care Provider [phone] Reason for Visit * Reason Comments Bilateral Foot Pain and a positive blood test. Encounter Details Date Type Department Care Team (Late st Contact Info) Description 10/05/2011 12:30 PM EST Office Visit [facility] [address] [address] Sarita Brito MD Positive MANISH (antinuclear antibody) [...] clinic today with his mother. Records in [facility] were reviewed. HPI: Nguyễn has been [...] gait today. Laboratory studies were obtained at [facility]. A CBC revealed a WBC of [...] limb documented in this encounter Care Teams Mid Level Net Developer Relationship Specialty Start Date End Date Mallory Arce MD [facility] CHILD ADVOCACY & [place] [address] PCP - General 10/13/10 06/23/15 documented as of this encounter
--- OUTSIDE RECORDS SUMMARY | 2024-11-12 14:37 | XMS_ITS | Encounter Summary ---
Author Organization [facility] Address [address] [place] [address] Care Team Providers Care Engineer Third Assistant Name Role Phone Shayne Kraus MD Primary Care Provider [phone] Encounter Details Date Type Department Care Team [...] on filedocumented in this encounter Care Teams Engineer Third Assistant Relationship Specialty Start Date End Date Shayne Kraus MD [address] [place] [address] [place] [address] PCP - General 01/17/19 documented as of this encounter
--- OUTSIDE RECORDS SUMMARY | 2024-11-12 14:37 | XMS_ITS | Encounter Summary ---
Author Organization [facility] Address [address] [place] [address] Care Team Providers Care Director Of Direct Marketing Name Role Phone Shayne Kraus MD Primary Care Provider [phone] Encounter Details Date Type Department Care Team (Late st Contact Info) Description 11/09/2024 Lab Requisition [facility] Pathology & Laboratory Medicine - [facility] [address] [place], [place] [address] Outr Resulting Lab, Provider Social History Tobacco [...] as of this encounter Plan of Treatment Pending Results Name Type Priority Associated Diagnoses Date /Time CELIAC DISEASE PANEL Lab Routine 10/22 13:45 EST documented as of this encounter Visit Diagnoses Not on filedocumented in this encounter Care Teams Director Of Direct Marketing Relationship Specialty Start Date End Date Shayne Kraus MD [address] [place] [address] PCP - General 01/17/19 documented as of this encounter
--- OUTSIDE RECORDS SUMMARY | 2024-11-12 14:37 | XMS_ITS | Encounter Summary ---
[place] [address] Care Team Providers Care Manager Requirements Name Role Phone Mallory Arce MD Primary Care Provider [phone] Reason for Visit * Reason Onset Date Comments Results 11/23/2011 Encounter Details Date Type Department Care Team (Late st Contact Info) Description 11/23/2011 Telephone [place] [address] Sarita Brito MD Results Social [...] on filedocumented in this encounter Care Teams Manager Requirements Relationship Specialty Start Date End Date Mallory Arce MD [facility] CHILD ADVOCACY [place] [address] PCP - General 10/13/10 06/23/15 documented as of this encounter
--- OUTSIDE RECORDS SUMMARY | 2024-11-12 14:37 | XMS_ITS | Encounter Summary ---
[place] [address] Care Team Providers Care Meat Packager Name Role Phone Shayne Kraus MD Primary Care Provider [phone] Encounter Details Date Type Department Care Team (Late st Contact Info) Description 04/04/2019 Orders Only [place] [address] Yony Hernandez Social History Tobacco Use Types [...] on filedocumented in this encounter Care Teams Meat Packager Relationship Specialty Start Date End Date Shayne Kraus MD [place], [place] [id number] PCP - General 06/24/15 documented as of this encounter
--- OUTSIDE RECORDS SUMMARY | 2024-11-12 14:37 | XMS_ITS | Encounter Summary ---
Author Organization [facility] [place] [address] Care Team Providers Care Special Forces Communications Sergeant Name Role Phone Mallory Arce MD Primary Care Provider [phone] Encounter Details Date Type Department Care Team (Late st Contact Info) Description 11/09/2010 8:40 AM EST Office [place] [address] Juliana Mishra MD Discharge Disposition: Home Social History Tobacco [...] on filedocumented in this encounter Care Teams Special Forces Communications Sergeant Relationship Specialty Start Date End Date Mallory Arce MD [facility] CHILD ADVOCACY & [place] [address] PCP - General 10/13/10 06/23/15 documented as of this encounter
[2024-11-16 00:01] LABS: Calprotectin <50.0 mcg/g
== END 2024-11-12 14:37 | disposition home or self-care (01) ==
LOC: LBN 14:36
PROVIDERS: PCP Student in an Organized Health Care Education/Training Program; Visit Provider Pediatrics
DX: K52.9 Noninfective gastroenteritis and colitis, unspecified (principal)
CPT/HCPCS: 83993